=== PATIENT | male | born 1965 | race Caucasian/White ===

== ENCOUNTER 2023-08-14 14:36 | Outpatient (OUT) | payer OTHER, SELFPAY ==
[2023-08-14 15:40] LABS: Estimated Average Glucose 114 mg/dL; Glycohemoglobin A1C 5.6 % (4.5-6.2)
[2023-08-14 15:44] LABS: Basophils Percent Auto 0.4 % (0.2-2.0); Eosinophils Absolute Auto 0.1 10^3/uL (0.0-0.7); Eosinophils Percent Auto 1.9 % (0.9-7.0); Hematocrit 45.4 % (42.0-54.0); Hemoglobin 15.3 g/dL (14.0-18.0); Immature Granulocytes Abs Auto 0.01 10^3/uL (0.00-0.03); Immature Granulocytes Pct Auto 0.2 % (0.0-0.5); Lymphocytes Absolute Auto 2.6 10^3/uL (1.2-3.8); Lymphocytes Percent Auto 49.5 % (20.5-60.0); Mean Corpuscular HGB Conc 33.7 g/dL (29.9-35.2); Mean Corpuscular Hemoglobin 32.3 pg (25.9-34.0); Mean Corpuscular Volume 95.8 fL (80.0-94.0); Mean Platelet Volume 10.2 fL (9.5-13.5); Monocytes Absolute Auto 0.6 10^3/uL (0.3-0.8); Monocytes Percent Auto 11.8 % (1.7-12.0); Neutrophils Absolute Auto 1.9 10^3/uL (1.4-6.5); Neutrophils Percent Auto 36.2 % (43.0-75.0); Platelet Count 197 10^3/uL (150-450); Red Blood Count 4.74 10^6/uL (4.70-6.10); Red Cell Distribution Width 12.1 % (11.0-15.0); White Blood Count 5.3 10^3/uL (4.0-11.0)
[2023-08-14 16:03] LABS: Alanine Aminotransferase 58 U/L (16-63); Albumin Globulin Ratio 1.1; Albumin Level 3.6 g/dL (3.4-5.0); Alkaline Phosphatase 97 U/L (46-116); Anion Gap 11.3; Aspartate Amino Transferase 44 U/L (15-37); BUN Creatinine Ratio 14.9; Bilirubin Total 0.6 mg/dL (0.2-1.0); Calcium 8.3 mg/dL (8.5-10.1); Carbon Dioxide 29.7 mmol/L (21.0-32.0); Chloride 104 mmol/L (98-107); Chol HDL Ratio 4.3; Cholesterol 175 mg/dL (<=200); Estimated GFR (African America >60 (>=60); Estimated GFR (Non-African Ame >60 (>=60); Free T3 3.15 pg/mL (2.18-3.98); Globulin 3.3 g/dL; Glucose 86 mg/dL (74-106); HDL Cholesterol 41 mg/dL (40-60); LDL Cholesterol Calculated 120.4 mg/dL; Sodium 141 mmol/L (136-145); Thyroid Stimulating Hormone 1.166 uIU/mL (0.358-3.740); Total Protein 6.9 g/dL (6.4-8.2); Triglycerides 68 mg/dL (<=150); Uric Acid 5.4 mg/dL (3.5-7.2); VLDL CHOLESTEROL 13.6 mg/dL
[2023-08-14 16:11] LABS: Prostate Specific Antigen Scrn 4.96 ng/mL (<=4.00)
[2023-08-15 12:08] LABS: Insulin 6.2 uIU/mL (2.6-24.9)
== END 2023-08-14 14:37 | disposition home or self-care (01) ==
PROVIDERS: PCP Family Medicine; Visit Provider Nurse Practitioner Family
DX: Z00.00 Encounter for general adult medical examination without abnormal findings (principal); Z12.5 Encounter for screening for malignant neoplasm of prostate
CPT/HCPCS: 36415; 80053; 80061; 83036; 83525; 84436; 84443; 84481; 84550; 85025; G0103

== ENCOUNTER 2023-08-21 06:53 | Outpatient (OUT) | payer OTHER, SELFPAY ==
[2023-08-21 07:48] LABS: Alanine Aminotransferase 52 U/L (16-63); Albumin Globulin Ratio 1.2; Albumin Level 3.7 g/dL (3.4-5.0); Alkaline Phosphatase 96 U/L (46-116); Aspartate Amino Transferase 49 U/L (15-37); Bilirubin Direct 0.1 mg/dL (0.0-0.2); Bilirubin Total 0.4 mg/dL (0.2-1.0); Total Protein 6.7 g/dL (6.4-8.2)
[2023-08-22 04:07] LABS: PSA, Free 0.88 ng/mL; Prostate Specific Ag 4.9 ng/mL (0.0-4.0)
== END 2023-08-21 06:54 | disposition home or self-care (01) ==
LOC: LAB 06:53
PROVIDERS: PCP Family Medicine; Visit Provider Nurse Practitioner Family
DX: R74.8 Abnormal levels of other serum enzymes (principal); R97.20 Elevated prostate specific antigen [PSA]
CPT/HCPCS: 36415; 80076; 84153; 84154

== ENCOUNTER 2023-08-24 20:02 | Outpatient (REF) | payer OTHER, SELFPAY ==
[2023-08-24 20:43] LABS: Occult Blood Positive
== END 2023-08-24 20:03 | disposition home or self-care (01) ==
LOC: LAB 20:02
PROVIDERS: PCP Family Medicine; Visit Provider Nurse Practitioner Family
DX: Z00.00 Encounter for general adult medical examination without abnormal findings (principal)
CPT/HCPCS: G0328

== ENCOUNTER 2024-05-13 13:37 | Outpatient (OUT) | payer BC, SELFPAY | END 2024-05-13 13:38 | disposition home or self-care (01) | LOC: PST 13:37 | PROVIDERS: PCP Family Medicine; Visit Provider Surgery | DX: Z01.818 Encounter for other preprocedural examination (principal); R19.5 Other fecal abnormalities ==

== ENCOUNTER 2024-05-21 08:04 | Day surgery (SDC) | payer BC, SELFPAY ==
--- NOTE | 2024-05-21 | OP_ITS ---
OPERATION DATE: 05/21/2024 PREOPERATIVE DIAGNOSIS: Positive fecal occult blood test. POSTOPERATIVE DIAGNOSIS: Severe sigmoid diverticulosis. PROCEDURE: Colonoscopy to cecum. SURGEON: He Villela M.D. ANESTHESIA: Monitored anesthesia care. ESTIMATED BLOOD LOSS: Zero. INDICATIONS AND CONSENT: Patient is a 58-year-old male presents for positive fecal occult blood test. Indications, risks, benefits, alternatives of proceeding with colonoscopy were explained extensively to the patient, including the risks of bleeding, colon perforation or anesthetic complications. All of his questions were answered. Informed consent was obtained. PROCEDURE: Patient was brought to the operating room, placed in the left lateral decubitus position. Monitored anesthesia care was provided. Rectal exam was performed which revealed no masses or blood. The scope was inserted into the anal canal, under direct visualization was advanced. It was advanced to the cecum where cecal markings were clearly identified. There was noted to be a good prep. Upon withdrawal of the scope, mucosal surfaces were carefully examined. There were no mass lesions or polyps. No inflammatory changes or ulcerations. There was severe sigmoid diverticulosis without inflammatory changes or scarring. The scope was retroflexed in the anal canal. There was no significant hemorrhoidal disease. There were some prominent rectal veins. No evidence of old or new blood. Scope was then withdrawn. Patient tolerated procedure well, was sent to recovery room in good condition. f/u screening colonoscopy should be in 10 years. CC: Alexander Maki M.D. MTDD
[2024-05-21 08:09] VITALS: BP 132/82; PULSE 59; TEMP 36.1; O2SAT 100; BMI 27.3
--- OUTSIDE RECORDS SUMMARY | 2024-05-21 08:12 | XMS_ITS | CCD ---
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 Name Role Phone DR MARY MAKI Attending Unavailable HAI, DR HERNANDEZ Admitting Unavailable DR MARY MAKI Primary Care Unavailable DR MARY MAKI Consulting Unavailable DR MARY MAKI Admitting Unavailable HAI, DR HERNANDEZ Primary Care Unavailable HAI, DR HERNANDEZ Consulting Unavailable DR MARY MAKI Attending Unavailable Mary Maki MD Primary Care Provider [phone] Unavailable Primary Care Provider Unavailabl e No Family, Physician Primary Care Unavailable Mary Maki MD Primary Care Provider [phone] Mary Maki MD Primary Care Provider [phone] ANDRE KRAMER Referring Unavailable MARY MAKI Primary Care Unavailable ANDRE KRAMER Attending Unavailable MARY MAKI Primary Care Unavailable MARY MAKI Primary Care Unavailable HAI MARY Giorgio Primary Care Unavailable PEDRO YAÑEZ Referring Unavailable PEDRO YAÑEZ Attending Unavailable MARY MAKI Primary Care Unavailable ANDRE KRAMER Referring Unavailable DAVID MAKILAS M Primary Care Unavailable ANDRE KRAMER Referring Unavailable MARY MAKI Primary Care Unavailable Mary Maki Primary Care Physician [phone] He MOY Attending Unavailable Mary Maki Referring Unavailable Allergies Allergy Classification Reported Allergen(s) Allergy Type Date of Onset Reaction(s) Facility (1 source) No Known Medication Allergies; Translations: [No Known Medication Allergies] Propensity to adverse reactions (disorder) [facility] Repository Medications Current Medications Medication Drug Class(es) Dates Sig (Normalized) Sig (Original) 60 actuat budesonide 0.08 mg/actuat / formoterol fumarate 0.0045 mg/actuat metered dose inhaler (4 sources) Corticosteroid, beta2-Adrenergic Agonist Start: 09-24-2023 take 2 puff(s) by inhalation twice daily SYMBICORT 80-4.5 mcg/actuation inhaler INHALE 2 PUFFS INSTRUCTED TWICE DAILY. 30.6 Each 1 09/24/2023 Active Start: 2023 take 2 puff(s) by in halation twice daily budesonide-formoterol (SYMBICORT) 80-4.5 mcg/actuation inhaler Inhale 2 Puffs as instructed twice daily. 1 Each 2 2023 Active Comment on above: Inhale 2 Puffs as in structed twice daily. iv contrast (will be provided with radiology test) (1 source) Start: End: iv contrast (will be provided with radiology test) Indications: Elevated PSA , Encounter for observation for other suspected diseases and conditions ruled out MRI Prostate Inject, intravenously, once for 1 dose. No IV access, insert saline lock prior to the beginning of sedation, infusion, injection of imaging exam. Discontinue saline lock post exam. If Pt. has a central line or IVAD, may access for administration according to line specific nursing protocol. Once exam is complete flush line and de-access according to line specific nursing protocol in the MR contrast administration guidelines link. 1 Each 0 03/17/2024 03/18/2024 Active omeprazole 40 mg delayed release oral capsule (8 sources) Proton Pump Inhibitor Start: take 1 capsule by mouth once daily omeprazole (PRILOSEC) 40 mg capsule Indications: Chronic cough , Wheezing Take 1 capsule by mouth once daily. 30 capsule 2 09/14/2023 Active Start: 05-11-2023 take 1 capsule by mo [facility] once daily omeprazole (PRILOSEC) 40 mg capsule Indications: Chronic cough , Wheezing Take 1 capsule by mouth once daily. 30 capsule 2 05/11/2023 Active Comment on above: Take 1 capsule by mo [facility] once daily. ondansetron 4 mg disintegrating oral tablet (2 sources) Serotonin-3 Receptor Antagonist Start: 12-13-19 take 1 tablet by mouth three times daily as needed for nausea ondansetron (ZOFRAN-ODT) 4 MG disintegrating tablet Take 1 tablet by mouth 3 times daily as needed for Nausea or Vomiting 20 tablet 0 12/12/2022 Active Start: 12-12-2022 End: 12-12-2022 take 1 dose by mouth once 4 mg, Oral, ONCE, 1 dose, On Sun12/12/22 at 0845 tadalafil 5 mg oral tablet (3 sources) Phosphodiesterase 5 Inhibitor Start: 04-03-2024 take 1 tablet by mouth once daily as needed Cialis 5 mg oral tablet 5 mg = 1 tab(s), Oral, Daily, PRN erectile dysfunction, Refills(s) 0 Start Date: 04/03/24 Status: Ordered Start: 03-14-2024 take 1 tablet by silva th once daily as needed Tadalafil (CIALIS) 10 mg tablet Indications: Screening for genitourinary condition , Erectile dysfunction due to arterial insufficiency Take 1 tablet by mouth once daily as needed for up to 20 doses. Take 1-2 hours before sexual activity. 20 tablet 0 03/14/2024 Active Completed/Discontinued Medications Medication Drug Class(es) Dates Sig (Normalized) Sig (Original) amoxicillin 500 mg oral tablet (6 sources) Penicillin-class Antibacterial Start: 05-01-2019 End: 05-11-2023 Amoxicillin 500 mg tablet Take four capsules 1 hour prior to dental procedure and two capsule 6 hours later 12 tablet 0 05/01/2019 05/11/2023 Discontinued (Course of therapy completed) Comment on above: Take four capsules 1 hour prior to dental procedure and two capsule 6 hours later aspirin 81 mg delayed release oral tablet (5 sources) Platelet Aggregation Inhibitor, Nonsteroidal Anti-inflammatory Drug Start: 03-10-2019 End: 05-11-2023 take 1 tablet by mouth twice daily aspirin, enteric coated (ECOTRIN LOW STRENGTH) 81 mg EC tablet Take 1 tablet by mouth twice daily for 28 days. 56 tablet 0 03/10/2019 05/11/2023 Discontinued (Discontinued by Patient) Comment on above: Take 1 tablet by silva th twice daily for 28 days. cyclobenzaprine hydrochloride 10 mg oral tablet (6 sources) Muscle Relaxant Start: 05-27-2019 End: 05-11-2023 take 1 tablet by mouth twice daily as needed cyclobenzaprine (FLEXERIL) 10 mg tablet TAKE 1 TABLET BY MOUTH TWICE A DAY NEEDED *DO NOT OPERATE A VEHICLE WHILE TAKING THIS [id number]* 30 tablet 0 05/27/2019 05/11/2023 Discontinued (Discontinued by Patient) Comment on above: TAKE 1 TABLET BY SILVA TH TWICE A DAY NEEDED *DO NOT OPERATE A VEHICLE WHILE TAKING THIS [id number]* diclofenac sodium 75 mg delayed release oral tablet (12 sources) Nonsteroidal Anti-inflammatory Drug Start: 04-28-2019 End: 05-11-2023 take 1 tablet by mouth twice daily diclofenac, EC, (VOLTAREN) 75 mg EC tablet Take 1 tablet by mouth twice daily. 60 tablet 0 06/27/2019 05/11/2023 Discontinued (Discontinued by Patient) Comment on above: Take 1 tablet by silva th twice daily. pantoprazole 20 mg delayed release oral tablet (5 sources) Proton Pump Inhibitor Start: 03-10-2019 End: 05-11-2023 take 1 tablet by mouth once daily pantoprazole DR (PROTONIX) 20 mg tablet Take 1 tablet by mouth once daily for 14 days. 14 tablet 0 03/10/2019 05/11/2023 Discontinued (Discontinued by Patient) Comment on above: Take 1 tablet by silva once daily for 14 days. Problems Active Problems Problem Classification Problem Date Documented Da te Episodic/Chronic Anxiety disorders (1 source) Anxiety 04-03-2024 Chronic Asthma (1 source) Asthma 04-03-2024 Chronic Diverticulosis and diverticulitis (14 sources) Diverticulosis of large intestine; Translations: [Diverticulosis of large intestine without perforation or abscess without bleeding] Onset: 7 09-04-2017 Chronic Esophageal disorders (14 sources) Gastroesophageal reflux disease without esophagitis; Translations: [Gastro-esophageal reflux disease without esophagitis] Onset: 7 09-04-2017 Chronic Noninfectious gastroenteritis (2 sources) Gastroenteritis; Translations: [Noninfective gastroenteritis and colitis, unspecified] Onset: 3 Episodic Osteoarthritis (20 sources) Osteoarthritis of left knee joint; Translations: [Unilateral primary osteoarthritis, left knee] Onset: 7 06-25-2018 Chronic Other connective tissue disease (13 sources) History of total knee arthroplasty; Translations: [Presence of left artificial knee joint] Onset: 9 03-31-2019 Chronic Other gastrointestinal disorders (1 source) Abnormal feces; Translations: [Other fecal abnormalities] Onset: 4 Episodic Other gastrointestinal disorders (1 source) Occult blood in stools 04-03-2024 Episodic Other lower respiratory disease (4 sources) Wheezing; Translations: [Wheezing] 05-11-2023 Episodic Other male genital disorders (1 source) Male erectile dysfunction, unspecified; Translations: [MALE ERECTILE DYSFUNCTION UNS] Onset: 2 Chronic Other male genital disorders (1 source) Erectile dysfunction co-occurrent and due to arterial insufficiency; Translations: [Erectile dysfunction due to arterial insufficiency] 03-14-2024 Chronic Other male genital disorders (1 source) Erectile dysfunction due to arterial insufficiency; Translations: [Erectile dysfunction due to arterial insufficiency] Onset: 4 Chronic Other male genital disorders (1 source) Impotence 04-03-2024 Chronic Other nervous system disorders (1 source) Disturbance of attention 04-03-2024 Chronic Other nutritional; endocrine; and metabolic disorders (1 source) Overweight 04-03-2024 Episodic Other nutritional; endocrine; and metabolic disorders (1 source) Overweight in adulthood with body mass index of 25 or more but less than 30 05-07-2024 Episodic Other screening for suspected conditions (not mental disorders or infectious disease) (15 sources) Elevated prostate specific antigen [PSA]; Translations: [Encounter for screening for malignant neoplasm of prostate] Onset: 2 Episodic Spondylosis; intervertebral disc disorders; other back problems (1 source) Degeneration of cervical intervertebral disc 04-03-2024 Chronic Spondylosis; intervertebral disc disorders; other back problems (1 source) Sciatica 04-03-2024 Episodic Past or Other Problems Problem Classification Problem Date Documented Da te Episodic/Chronic Abdominal hernia (13 sources) Bilateral inguinal hernia; Translations: [Bilateral inguinal hernia, without obstruction or gangrene, not specified as recurrent] Onset: 08-17-2017 08-17-2017 Episodic Other lower respiratory disease (5 sources) Chronic cough; Translations: [Chronic cough] Onset: 05-11-2023 05-11-2023 Episodic Other lower respiratory disease (1 source) Wheezing; Translations: [Wheezing] Onset: 05-11-2023 Episodic Results Test Name Value Interpretation Reference Range Facility Ambulatory Visit Summaryon 0 05-07-2024 Ambulatory Visit Summary Ambulatory Visit Summary NOEMI GARCIA :1965 Visit Date:05/07/2024 Ambulatory Visit Instructions Your Diagnosis Positive occult stool blood test Your Care Team Attending Physician - CHINMAY GOMES, He Valenzuela Primary Care Physician - Mary Maki MD Referring Physician - Mary Maki MD This Is Your Medications List Contact prescribing physician if questions or concerns tadalafil (Cialis 5 mg oral tablet) Procedures Performed Colonoscopy (09/13/2016), Arthroplasty of left knee, History of lumbar spine surgery, Repair of left inguinal hernia, Repair of right inguinal hernia. Discharge Vitals Heart Rate (Peripheral) 70 Respiratory Rate 16 Blood Pressure 120/82 Height 180.34 cm Height 71 in Weight 89 kg Weight 195.8 lb BMI 27.37 Medications What How Much When Instructions Unchanged tadalafil (Cialis 5 mg oral tablet) 1 Tablets By Mouth Every day as needed for erectile dysfunction Contact prescribing physician if questions or concerns Allergies No Known Allergies No Known Medication Allergies Problems Ongoing - Any problem that you are currently receiving treatment for. Anxiety Asthma Attention and concentration deficit BMI 27.0-27.9,adult DDD (degenerative disc disease), cervical Erectile dysfunction GERD (gastroesophageal reflux disease) Overweight Positive occult stool blood test Sciatica Sigmoid diverticulosis Patient Survey You may receive a survey via text or e-mail asking about your office visit. Please share your experience with us by completing your survey. We appreciate your feedback and thank you for choosing us for your care. [facility] Office Visit (UROLMN ) NOEMI GARCIA ([id number]) 1965 M Date Time Provider Department 03/14/24 3:45 PM PEDRO YAÑEZ During your visit today, we recorded the following information about you: Pulse Blood pressure 69/minute 125/79 Pedro Yañez MD 03/17/2024 9:19 AM Signed PATIENT: Noemi Garcia [id number] 03/14/2024 Chief Complaint: Follow up elevated PSA History of Present Illness: This clinic note was copied and updated from previous note from 01/08/2023 Noemi Garcia is a very pleasant 58 year old male who presents with a history of OA, knee replacement, diverticulosis, GERD, elevated PSA . Follow up today with PSA free and total Patient is presenting for follow up PSA pending as of today Occasional hesitancy Occasional nocturia AUA score: 5 (mild), Qol0 JOSEFINA score: 22, no ED No family hx of prostate cancer., No hematuria, No dysuria, No kidney stones. Past Histories PAST MEDICAL HISTORY PAST MEDICAL HISTORY Diagnosis Date NONE PAST SURGICAL HISTORY PAST SURGICAL HISTORY Procedure Laterality Date COLONOSCOPY HERNIA REPAIR HX Bilateral PAST SURGICAL HISTORY OF lumbar disc surgery Medications Current Outpatient Medications Medication Instructions Amoxicillin 500 mg tablet Take four capsules 1 hour prior to dental procedure and two capsule 6 hours later aspirin, enteric coated (ECOTRIN LOW STRENGTH) 81 mg, ORAL, 2 TIMES DAILY cyclobenzaprine (FLEXERIL) 10 mg tablet TAKE 1 TABLET BY MOUTH TWICE A DAY NEEDED *DO NOT OPERATE A VEHICLE WHILE TAKING THIS [id number]* diclofenac (EC) (VOLTAREN) 75 mg, ORAL, 2 TIMES DAILY diclofenac (EC) (VOLTAREN) 75 mg, ORAL, [address] (PROTONIX) 20 mg, ORAL, DAILY Family History FAMILY HISTORY FAMILY HISTORY Problem Relation Age of Onset Coronary Artery Disease Paternal Grandfather Social History SOCIAL HISTORY Social History Tobacco Use Smoking status: Never Smokeless tobacco: Never Substance Use Topics Alcohol use: Yes Comment: Social Drug use: No Allergies Allergies: No Known Allergies Physical Exam: There were no vitals taken for this visit. General: Alert, no acute distress, oriented Lungs: No respiratory distress or pursed lip breathing Psych: Affect and mood normal Abdomen: Estimated body mass index is 26.64 kg/m? as calculated from the following: Height as of 01/08/23: 180.3 cm (5' 11 ). Weight as of 05/11/23: 86.6 kg (191 lb). Labs and Pathology: PSA (ng/mL) Date Value 05/02/2023 3.22 Creatinine (mg/dL) Date Value 03/11/2019 0.80 02/27/2019 0.95 08/31/2017 0.91 Diagnosis: (Z13.89) Screening for genitourinary condition (primary encounter diagnosis) (N52.01) Erectile dysfunction due to arterial insufficiency Assessment: Noemi Garcia is a very pleasant 58 year old male who presents with a history of OA, knee replacement, diverticulosis, GERD, elevated PSA . Follow up today with PSA free and total Patient sent by family doctor for elevated PSA. I don't have his recent PSA results at this time. He took the PSA test today results are currently in process. TREY today demonstrated prostate 1+, non tender and no suspicion of prostate cancer. We both agree to wait and review the test results. If results are high, I will request a MRI. If the results come back normal, we will continue with periodical assessment. I will call the patient with the PSA result. There is evidence that an MRI prior to initial biopsy increases the diagnostic yield of a standard TRUS guided biopsy, specifically for clinically significant prostate cancer (Ade > 7 or more). Also it does not detect low volume Ade 6 prostate cancer which often don't need to be diagnosed or treated. That strategy has been shown to reduce unnecessary biopsy by up to 25%. The MRI would also provide staging and surgical planning information should treatment be required. References: Pedro Luis et al., Diagnostic accuracy of MRI and TRUS biopsy in prostate cancer (PROMIS): a paired valiating confirmatory study. Lancet 25;389:069-350.3765. Linda et al. MRI-targeted or standard biopsy for prostate-cancer diagnosis. [facility] 378;19:[id number]. Plan: Will call with PSA result Scribe Attestation: By signing my name below, I,Altagracia Alvarez, attest that this documentation has been prepared under the direction and in the presence of Pedro Lloyd MD. Electronically Signed: Joanne Mccoy. March 14, 2024 4:24 PM. Provider Attestation: I, personally performed the services described in this documentation. All medical record entries made by the scribe were at my direction and in my presence. I have reviewed the chart and discharge instructions (if applicable) and agree that the record reflects my personal performance and is accurate and complete. Electronically Signed (more content not included)... Normal [facility] Free PSA [Mass/Vol]on 2023 Free PSA/Total PSA [Mass fraction] 19 % Normal [facility] Comment on above: Order Comment: Speci men Type: BLOOD SPECIMEN Ordering Facility: [facility] Address: [address] [place] [address] Result Comment: Tota l and free PSA test methodology used is the Electrochemiluminescence Immunoassay by [employer]. Total or free PSA values by differing methodologies cannot be interchanged. The below table lists the probability of finding prostate cancer upon needle biopsy, for men 50 years or older and total PSA concentrations from 4.0-10.0 ng/mL. Results should be interpreted within the broader clinical context. Free PSA(%) 50-59 years 60-69 years >69 years <11 49.2% 57.5% 64.5% 11-18 26.9% 33.9% 40.8% 19-25 18.3% 23.9% 29.7% >25 9.1% 12.2% 15.8% Performed By: #### 1 0886-0 #### [facility] CLIA [id number] [address] [place], [place] [address] [place] [address] [place] Prostate specific Ag [Mass/Vol] 5.41 ng/mL High <2.60 [facility] Comment on above: Order Comment: Speci men Type: BLOOD SPECIMEN Ordering Facility: [facility] Address: [address] [place] [address] Result Comment: Tota l PSA test methodology used is the Electrochemiluminescence Immunoassay by [employer]. Total PSA values by differing methodologies cannot be interchanged. For an individual patient, the significance of a PSA level should be interpreted in a broad clinical context, including age, race, family history, digital rectal exam, prostate size, results of prior testing (prostate biopsy, free PSA, PCA3), and use of 5-alpha reductase inhibitors. Considering the high incidence of asymptomatic cancer in the general population that may not pose an ultimate risk to a patient, the decision to recommend urological evaluation or prostate biopsy should be individualized after consideration of all these factors. REFERENCE: Eliu Matamoros M.D., M.P.H., Jason Wade M.D., Ph.D., Donn Pizarro M.D., Lesa Osullivan, M.P.H., Davina Pantoja, ScAmparoD. Effect of Verification Bias on Screening for Prostate Cancer by Measurement of Prostatic Specific Antigen. N Engl J Med 2003,349:335-42. Performed By: #### 1 0886-0 #### [facility] CLIA [id number] [address] [place] [address] [place] URINALYSIS, REFLEX MICROSCOP ICon 03-14-2024 Bilirubin Ql (U) Negative Normal Negative [facility] Comment on above: Order Comment: Speci men Type: BLOOD SPECIMEN Ordering Facility: [facility] Address: [address] [address] Performed By: #### 1 0886-0 #### [facility] CLIA [id number] [address] [place] [address] [place] Clarity (Unsp spec) Clear Normal Clear [facility] Comment on above: Order Comment: Speci men Type: BLOOD SPECIMEN Ordering Facility: [facility] Address: [address] [address] Performed By: #### 1 0886-0 #### [facility] CLIA [id number] [address] [place] [address] OF [facility] Color (U) Yellow Normal Yellow [facility] Comment on above: Order Comment: Speci men Type: BLOOD SPECIMEN Ordering Facility: [facility] Address: [address] [address] Performed By: #### 1 0886-0 #### [facility] CLIA [id number] [facility] [place] [address] [place] Glucose Test strip (U) [Mass/Vol] Negative Normal Negative [facility] Comment on above: Order Comment: Speci men Type: BLOOD SPECIMEN Ordering Facility: [facility] Address: [address] [address] Performed By: #### 1 0886-0 #### [facility] CLIA [id number] [address] [place] [address] [place] Hemoglobin Ql (U) Negative Normal Negative [facility] Comment on above: Order Comment: Speci men Type: BLOOD SPECIMEN Ordering Facility: [facility] Address: [address] [address] Performed By: #### 1 0886-0 #### [facility] CLIA [id number] [address] [place] [address] [place] Ketones Ql (U) Negative Normal Negative [facility] Comment on above: Order Comment: Speci men Type: BLOOD SPECIMEN Ordering Facility: [facility] Address: [address] [address] Performed By: #### 1 0886-0 #### [facility] CLIA [id number] [address] [place] [address] [place] Leukocyte esterase Test strip Ql (U) Negative Normal Negative [facility] Comment on above: Order Comment: Speci men Type: BLOOD SPECIMEN Ordering Facility: [facility] Address: [address] Performed By: #### 1 0886-0 #### [facility] CLIA [id number] [address] [place] [address] [place] Nitrite Ql (U) Negative Normal Negative [facility] Comment on above: Order Comment: Speci men Type: BLOOD SPECIMEN Ordering Facility: [facility] Address: [address] Performed By: #### 1 0886-0 #### [facility] CLIA [id number] [address] [place] [address] [place] pH (U) 5.5 [pH] Normal <8.5 [facility] Comment on above: Order Comment: Speci men Type: BLOOD SPECIMEN Ordering Facility: [facility] Address: [address] Performed By: #### 1 0886-0 #### [facility] CLIA [id number] [address] [place] [address] [place] Protein (U) [Mass/Vol] Negative Normal Negative [facility] Comment on above: Order Comment: Speci men Type: BLOOD SPECIMEN Ordering Facility: [facility] Address: [address] [place] [address] Performed By: #### 1 0886-0 #### [facility] CLIA [id number] [address] [place] [address] Specific gravity (U) [Rel density] 1.024 Normal 1.005-1.030 [facility] Comment on above: Order Comment: Speci men Type: BLOOD SPECIMEN Ordering Facility: [facility] Address: [address] [place] [address] Performed By: #### 1 0886-0 #### [facility] [place] [id number] [address] [place] [address] OF [place] Urobilinogen Ql (U) 0.2 EU/dL Normal 0.2-1.0 EU/dL [facility] Comment on above: Order Comment: Speci men Type: BLOOD SPECIMEN Ordering Facility: [facility] Address: [address] [place] [address] Performed By: #### 1 0886-0 #### [facility] [place] [id number] [address] [place] [address] [place] Physician Referralon 024 Physician Referral [phone] [id number] Normal [facility] CNCOon 05-15-2023 CNCO Letter (Out) (LADAN ) RADHA,NOEMI D ([id number]) 1965 M Date Time Provider Department 05/15/23 ANDRE KRAMER During your visit today, we recorded the following information about you: Allergies As of Date: 05/15/2023 (No Known Allergies) Date Reviewed: 05/11/2023 Reviewed by: Andre Kraemr MD - Fully Assessed Prescriptions as of 05/15/2023 - omeprazole (PRILOSEC) 40 mg capsule Take 1 capsule by mouth once daily. Problem List As Of Date 05/15/2023 Noted Resolved Primary osteoarthritis of left knee [M17.12] 09/28/2016 Non-recurrent bilateral inguinal hernia without*08/17/2017 Diverticulosis of large intestine without perfo*09/04/2017 GERD without esophagitis [K21.9] 09/04/2017 Arthritis of knee, left [M17.12] 06/25/2018 OA (osteoarthritis) of knee [M17.9] 03/10/2019 Status post total knee replacement, left [Z96.6*03/31/2019 Letter Text Encounter Status:Closed by RITA OLIVER on 05/15/23 [facility] CNOVon 05-11-2023 CNOV Office Visit (PMNA11 ) NOEMI GARCIA ([id number]) 1965 M Date Time Provider Department 05/11/23 1:00 PM ANDRE KRAMER PMNA11 During your visit today, we recorded the following information about you: Temperature Pulse Respiration Blood pressure 97 degrees 94/minute 16/minute 122/75 Weight 86.6 kg Andre Kramer MD 05/11/2023 1:56 PM Count Includes [facility] [place] New Pulmonary Consultation CC: wheezing, cough Noemi Gavlan Radha is a 57 year old male self-referred for evaluation of cough. Assessment and Plan (R05.3) Chronic cough (primary encounter diagnosis) (R06.2) Wheezing Comment: I am suspicious that his cough may be from underlying asthma given prior spirometry showing mild obstruction and prior clinical response to Advair and/or related to GERD leading to laryngeal pharyngeal reflux given that his cough is worse in the morning and his sleep partner reports nocturnal wheezing. He currently has no GERD alarm symptoms such as dysphagia or weight loss. Plan: Obtain NITRIC OXIDE, EXHALED, SPIROMETRY - BASELINE AND POST DILATOR To evaluate for underlying asthma XR CHEST 2V FRONTAL/LAT CONSULT TO ENT for evaluation of vocal cord function (?ILO related to LPR) Start omeprazole (PRILOSEC) 40 mg capsule daily Start to sleep with the head of bed elevated 30 degrees Return to clinic in 3 months This note was partially created using voice recognition software and is inherently subject to errors including those of syntax and sound-alike substitutions which may escape proofreading. In such instances, original meaning may be extrapolated by contextual derivation. Please contact my office with questions or concerns. I spent a total of 54 minutes on the date of the service which included preparing to see the patient, [id number] patient care, completing clinical documentation, obtaining and/or reviewing separately obtained history, performing a medically appropriate examination, counseling and educating the patient/family/caregiver, ordering medications, tests, or procedures, independently interpreting results (not separately reported), and communicating results to the patient/family/caregiver Andre Kramer MD Staff, Pulmonary AND Critical Care Medicine Staff, [facility] [place] [facility] HPI: Mr Garcia is a 57 year-old never smoker who presented today for evaluation of wheezing and the sensation of something in his lungs associated with a cough. He was previously seen by pulmonary medicine in with Dr. Del Toro and underwent bronchoscopy for evaluation of cough. Per Dr. Del Toro's notes he was having a hacking spasmodic cough. some black particles in the phlegm. 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 Bronchoscopy was done and reported as normal and he was started on Advair, which he used for a few years. This did help his cough. 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 He states that he is exposed to some fumes at times. His currently cough came about the past 3-4 years. His cough is day and night. Cough is mostly dry, but he has recent worsening of his cough after URI and coughed up some phlegm. He feels like there is an occasional tickle in his throat. Cough is not related to position or food, but he does note that his cough is worse in the morning. He cough isn't necessarily related to work. He also has voice hoarseness. His girlfriend states she hears him wheezing at night. He denies PND. He has no dysphagia or traditional GERD symptoms. No aspiration event outside of shredded pork/beef when he eats it too fast. He recently renovated a home with girlfriends brother. There was concern for mold exposure that made his cough worse for awhile. He has no dyspnea, but has not been routinely exercising in the past 6 months. He had gained 10 lbs in the past 6 months. No LE edema, orthopnea. No Chest pain. No new rashes. PAST MEDICAL HISTORY Diagnosis Date NONE PAST SURGICAL HISTORY Procedure Laterality Date COLONOSCOPY HERNIA REPAIR HX Bilateral PAST SURGICAL HISTORY OF lumbar disc surgery FAMILY HISTORY Problem Relation Age of Onset Coronary Artery Disease Paternal Grandfather Social History Tobacco Use Smoking status: Never Smokeless tobacco: Never Substance Use Topics Alcohol use: Yes Comment: Social Drug use: No Current Outpatient Medications Medication Sig Dispense Refill diclofenac, EC, (VOLTAREN) 75 mg EC tablet Take 1 tablet by mouth twice daily. (Patient not taking: Reported on 05/11/2023) 60 tablet 0 cyclobenzaprine (FLEXERIL) 10 mg tablet TAKE 1 TABLET BY MOUTH TWICE A DAY NEEDED *DO NOT OPERATE A VEHICLE WHILE TAKING THIS [id number]* (Patient n (more content not included)... Normal [facility] No Panel Informationon 05-11 [facility] XR CHEST 2V FRONTAL/LATon XR CHEST 2V FRONTAL/LAT * * *Final Report* * * DATE OF EXAM: May 11 2023 2:24PM AOX [id number] - XR CHEST 2V FRONTAL/LAT / PROCEDURE REASON: multiple diagnoses * * * * Physician Interpretation * * * * EXAMINATION: CHEST RADIOGRAPH (2 VIEW FRONTAL and LATERAL) CLINICAL HISTORY: Chronic cough Wheezing MQ: [id number] EXAM DATE/TIME: 05/11/2023 2:24 PM COMPARISON: No relevant prior studies available. RESULT: Lines, tubes, and devices: None. Lungs and pleura: Mild inflammatory airway thickening in the perihilar regions is suspected. No consolidation or mass lesion. No pleural effusion or pneumothorax. Cardiomediastinal silhouette: Normal sized heart. Thoracic aorta is mildly tortuous. Bones and soft tissues: The visualized bones are osteopenic. IMPRESSION: See result Orthotist: YESSENIA Transcribe Date/Time: May 11 2023 3:09P Dictated by : LEXIE SCHOFIELD MD This examination was interpreted and the report reviewed and electronically signed by: LEXIE SCHOFIELD MD on May 11 2023 3:10PM EST [id number] Normal [facility] Free PSA [Mass/Vol]on 2022 Free PSA/Total PSA [Mass fraction] 16 % Normal [facility] Comment on above: Order Comment: Speci men Type: BLOOD SPECIMEN Ordering Facility: [facility] Address: [address] [place], [place] [id number] Result Comment: Tota l and free PSA test methodology used is the Electrochemiluminescence Immunoassay by [employer]. Total or free PSA values by differing methodologies cannot be interchanged. The below table lists the probability of finding prostate cancer upon needle biopsy, for men 50 years or older and total PSA concentrations from 4.0-10.0 ng/mL. Results should be interpreted within the broader clinical context. Free PSA(%) 50-59 years 60-69 years >69 years <11 49.2% 57.5% 64.5% 11-18 26.9% 33.9% 40.8% 19-25 18.3% 23.9% 29.7% >25 9.1% 12.2% 15.8% Performed By: #### 1 0886-0 #### [facility] CLIA [id number] [facility] [id number] [place] [address] [place] Prostate specific Ag [Mass/Vol] 3.22 ng/mL High <2.60 [facility] Comment on above: Order Comment: Speci men Type: BLOOD SPECIMEN Ordering Facility: [facility] Address: [address] [place] [id number] Result Comment: Alesha villarreal PSA test methodology used is the Electrochemiluminescence Immunoassay by [employer]. Total PSA values by differing methodologies cannot be interchanged. For an individual patient, the significance of a PSA level should be interpreted in a broad clinical context, including age, race, family history, digital rectal exam, prostate size, results of prior testing (prostate biopsy, free PSA, PCA3), and use of 5-alpha reductase inhibitors. Considering the high incidence of asymptomatic cancer in the general population that may not pose an ultimate risk to a patient, the decision to recommend urological evaluation or prostate biopsy should be individualized after consideration of all these factors. REFERENCE: Eliu Matamoros M.D., M.P.H., Jason Wade M.D., Ph.D., Donn Pizarro M.D., Lesa Osullivan, M.P.H., Davina Pantoja, Sc.Mandy. Effect of Verification Bias on Screening for Prostate Cancer by Measurement of Prostatic Specific Antigen. N Engl J Med 2003,349:335-42. Performed By: #### 1 0886-0 #### [facility] CLIA [id number] [address] [place] [address] [place] URINALYSIS, REFLEX MICROSCOP ICon 01-08-2023 Bilirubin Ql (U) Negative Negative [facility] Clarity (Unsp spec) Clear Clear [facility] Color (U) Colorless Yellow [facility] Glucose Test strip (U) [Mass/Vol] Negative Trace, Negative [facility] Hemoglobin Ql (U) Negative Negative, Trace [facility] Ketones Ql (U) Negative Negative, Trace [facility] Leukocyte esterase Test strip Ql (U) Negative Negative, 25 Radhika/uL [facility] Nitrite Ql (U) Negative Negative [facility] pH (U) 6.5 [pH] 5.0 - 8.0 [facility] Protein (U) [Mass/Vol] Negative Trace, Negative [facility] Specific gravity (U) [Rel density] 1.005 1.005 - 1.030 [facility] Urobilinogen Ql (U) Negative Negative [facility] COVID-19 BY NAATon SARS-CoV-2 (COVID-19) RNA CHICA+probe Ql (Unsp spec) Not detected Normal NOT DETECTED [facility] Comment on above: Result Comment: Rapi d NAAT: Negative results should be treated as presumptive and, if inconsistent with clinical signs and symptoms or necessary for patient management, should be tested with an alternative molecular assay. Negative results do not preclude SARS-CoV-2 infection and should not be used as the sole basis for patient management decisions. This test has been authorized by the FDA under an Emergency Use Authorization (EUA) for use by authorized laboratories. Fact sheet for Healthcare Providers: https://www.fda.gov/media/548265/download Fact sheet for Patients: https://www.fda.gov/media/233362/download METHODOLOGY: Isothermal Nucleic Acid Amplification Performed By: #### W OFELIA #### [place] [address] COVID-19, Rapidon 12-12-2022 SARS-CoV-2 (COVID-19) RdRp gene CHICA+probe Ql (Resp) Not detected NOT DETECTED [facility] Comment on above: Rapid NAAT: Negative results should be treated as presumptive and, if inconsistent with clinical signs and symptoms or necessary for patient management, should be tested with an alternative molecular assay. Negative results do not preclude SARS-CoV-2 infection and should not be used as the sole basis for patient management decisions. This test has been authorized by the FDA under an Emergency Use Authorization (EUA) for use by authorized laboratories. Fact sheet for Healthcare Providers: https://www.fda.gov/media/557455/download Fact sheet for Patients: https://www.fda.gov/media/861278/download METHODOLOGY: Isothermal Nucleic Acid Amplification [place] [address] SARS-CoV-2 (COVID-19) RdRp g kj CHICA+probe Ql (Resp)on 12-12-2022 [facility] URINALYSIS, REFLEX MICROSCOP ICon 07-11-2022 Bilirubin Ql (U) Negative Negative [facility] Clarity (Unsp spec) Clear Clear [facility] Color (U) Light Yellow Yellow [facility] Glucose Test strip (U) [Mass/Vol] Negative Negative [facility] Hemoglobin Ql (U) Negative Negative [facility] Ketones Ql (U) Negative Negative [facility] Leukocyte esterase Test strip Ql (U) Negative Negative [facility] Nitrite Ql (U) Negative Negative [facility] pH (U) 6.0 [pH] 5.0 - 8.0 [facility] Protein (U) [Mass/Vol] Negative Negative [facility] Specific gravity (U) [Rel density] 1.021 1.005 - 1.030 [facility] Urobilinogen Ql (U) Negative Negative [facility] PSA, FREE AND TOTAL RATIOon 06-07-2022 % Free PSA 18.7 % Normal [facility] Comment on above: Result Comment: The table below lists the probability of prostate cancer for men with non-suspicious TREY results and total PSA between 4 and 10 ng/mL, by patient age (Vinay et al, CORDELL 1998, 279:1542). % Free PSA 50-64 yr 65-75 yr 0.00-10.00% 56% 55% 10.01-15.00% 24% 35% 15.01-20.00% 17% 23% 20.01-25.00% 10% 20% >25.00% 5% 9% Please note: Vinay et al did not make specific recommendations regarding the use of percent free PSA for any other population of men. Performed By: #### P SAFREE #### [facility] [address] [place] [address] Dr. King Cuellar Prostate specific Ag [Mass/Vol] 3.8 ng/mL Normal 0.0-4.0 [facility] Comment on above: Result Comment: Natanael THOMPSON methodology. . According to the [place] [employer], Serum PSA should decrease and remain at undetectable levels after radical prostatectomy. The AUA defines biochemical recurrence as an initial PSA value 0.2 ng/mL or greater followed by a subsequent confirmatory PSA value 0.2 ng/mL or greater. Values obtained with different assay methods or kits cannot be used interchangeably. Results cannot be interpreted as absolute evidence of the presence or absence of malignant disease. Performed By: #### P SAFREE #### [facility] [address] [address] [address] King Cuellar PSA, Free 0.71 ng/mL Normal N/A [facility] Comment on above: Result Comment: Natanael THOMPSON methodology. Performed By: #### P SAFREE #### [facility] [address] [place] [address] Dr. King Cuellar TESTOSTERONE, TOTALon 2021 Testosterone [Mass/Vol] 616 ng/dL Normal 264-916 [facility] Comment on above: Result Comment: Adul t male reference interval is based on a population of healthy nonobese males (BMI <30) between 19 and 39 years old. Theodore, et.al. JCEM 2017,102;2848-5914. PMID: [id number]. Performed By: #### T ESTTOT #### [facility] [address] [place] [address] Dr. King Cuellar INSULINon 11-08-2021 Insulin 6.6 uIU/mL Normal 2.6-24.9 [facility] Comment on above: Performed By: #### I NSULIN #### [facility] [address] [place] [address] Dr. King Cuellar PSA, FREE AND TOTAL RATIOon 11-08-2021 % Free PSA 18.5 % Normal [facility] Comment on above: Result Comment: The table below lists the probability of prostate cancer for men with non-suspicious TREY results and total PSA between 4 and 10 ng/mL, by patient age (Vinay et al, CORDELL 1998, 279:1542). % Free PSA 50-64 yr 65-75 yr 0.00-10.00% 56% 55% 10.01-15.00% 24% 35% 15.01-20.00% 17% 23% 20.01-25.00% 10% 20% >25.00% 5% 9% Please note: Vinay et al did not make specific recommendations regarding the use of percent free PSA for any other population of men. Performed By: #### P SAFREE #### [facility] [address] [place] [address] Dr. King Cuellar Prostate specific Ag [Mass/Vol] 3.9 ng/mL Normal 0.0-4.0 [facility] Comment on above: Result Comment: Natanael colón ECLIA methodology. . According to the [place] [employer], Serum PSA should decrease and remain at undetectable levels after radical prostatectomy. The AUA defines biochemical recurrence as an initial PSA value 0.2 ng/mL or greater followed by a subsequent confirmatory PSA value 0.2 ng/mL or greater. Values obtained with different assay methods or kits cannot be used interchangeably. Results cannot be interpreted as absolute evidence of the presence or absence of malignant disease. Performed By: #### P SAFREE #### [facility] [address] [place] [address] Dr. King Cuellar PSA, Free 0.72 ng/mL Normal N/A [facility] Comment on above: Result Comment: Natanael colón ECLIA methodology. Performed By: #### P SAFREE #### [facility] [address] [place] [address] Dr. King Cuellar CBC AUTO DIFFon 11-07-2021 BASO # 0.0 103/ul Normal 0.0-0.1 [facility] Comment on above: Performed By: #### C BC #### [facility] [address] [place] [address] Dr. King Cuellar Basophils/100 WBC (Bld) 0.4 % Normal 0.2-2.0 [facility] Comment on above: Performed By: #### C BC #### [facility] [address] [place] [address] Dr. King Cuellar EO # 0.2 103/ul Normal 0.0-0.7 [facility] Comment on above: Performed By: #### C BC #### [facility] [address] [place] [address] Dr. King Cuellar Eosinophils/100 WBC (Bld) 3.6 % Normal 0.9-7.0 [facility] Comment on above: Performed By: #### C BC #### [facility] [address] [place] [address] Dr. King Cuellar Erythrocyte distribution width (RBC) [Ratio] 12.1 % Normal 11.0-15.0 [facility] Comment on above: Performed By: #### C BC #### [facility] [address] [place] [address] Dr. King Cuellar Hematocrit (Bld) [Volume fraction] 50.9 % Normal 42.0-54.0 [facility] Comment on above: Performed By: #### C BC #### [facility] [address] [place] [address] Dr. King Cuellar Hemoglobin (Bld) [Mass/Vol] 16.6 g/dL Normal 14.0-18.0 [facility] Comment on above: Performed By: #### C BC #### [facility] [address] [place] [address] Dr. King Cuellar IG # 0.02 10e3/ul Normal 0.00-0.03 [facility] Comment on above: Performed By: #### C BC #### [facility] [address] [place] [address] Dr. King Cuellar IG % 0.4 % Normal 0.0-0.5 [facility] Comment on above: Performed By: #### C BC #### [facility] [address] [place] [address] Dr. King Cuellar LYMPH # 1.6 103/ul Normal 1.2-3.8 [facility] Comment on above: Performed By: #### C BC #### [facility] [address] [place] [address] Dr. King Cuellar Lymphocytes/100 WBC (Bld) 31.1 % Normal 20.5-60.0 [facility] Comment on above: Performed By: #### C BC #### [facility] [address] [place] [address] Dr. King Cuellar MANUAL DIFF REQ NO Normal [facility] Comment on above: Performed By: #### C BC #### [facility] [address] [place] [address] Dr. King Cuellar MCH (RBC) [Entitic mass] 32.2 pg Normal 25.9-34.0 [facility] Comment on above: Performed By: #### C BC #### [facility] [address] [place], [place] [id number] Dr. King Cuellar MCHC (RBC) [Mass/Vol] 32.6 g/dL Normal 29.9-35.2 [facility] Comment on above: Performed By: #### C BC #### [facility] [address] [place] [address] Dr. King Cuellar MCV (RBC) [Entitic vol] 98.6 fL Critically high 80.0-94.0 [facility] Comment on above: Performed By: #### C BC #### [facility] [address] [place] [address] Dr. King Cuellar MONO # 0.5 103/ul Normal 0.3-0.8 [facility] Comment on above: Performed By: #### C BC #### [facility] [address] [place] [address] Dr. King Cuellar Monocytes/100 WBC (Bld) 9.7 % Normal 1.7-12.0 [facility] Comment on above: Performed By: #### C BC #### [facility] [address] [place] [address] Dr. King Cuellar NEUT # 2.9 103/ul Normal 1.4-6.5 [facility] Comment on above: Performed By: #### C BC #### [facility] [address] [place] [address] Dr. King Cuellar Neutrophils/100 WBC (Bld) 54.8 % Normal 43.0-75.0 [facility] Comment on above: Performed By: #### C BC #### [facility] [address] [place] [address] Dr. King Cuellar Platelet mean volume (Bld) [Entitic vol] 9.7 fL Normal 9.5-13.5 [facility] Comment on above: Performed By: #### C BC #### [facility] [address] [place] [address] Dr. King Cuellar PLT 238 103/ul Normal 150-450 [facility] Comment on above: Performed By: #### C BC #### [facility] [address] [place] [address] Dr. King Cuellar RBC 5.16 106/ul Normal 4.70-6.10 [facility] Comment on above: Performed By: #### C BC #### [facility] [address] [place] [address] Dr. King Cuellar WBC 5.3 103/ul Normal 4.0-11.0 [facility] Comment on above: Performed By: #### C BC #### [facility] [address] [place] [address] Dr. King Cuellar GLYCOHEMOGLOBIN A1Con 2021 ADA RECOMMENDATION ADA THERAPEUTIC TARG ET 6.0 - 7.0 ACTION SUGGESTED > 7.0 Normal [facility] Comment on above: Performed By: #### A 1C #### [facility] [address] [place] [address] Dr. King Cuellar Glucose [Mass/Vol] 111 mg/dL Normal [facility] Comment on above: Performed By: #### A 1C #### [facility] [address] [place] [address] Dr. King Cuellar HbA1c (Bld) [Mass fraction] 5.5 % Normal <=6.0 [facility] Comment on above: Performed By: #### A 1C #### [facility] [address] [place] [address] Dr. King Cuellar LIPID PROFILEon 11-07-2021 CHOL-HDL RATIO NORM SEE BELOW Normal [facility] Comment on above: Result Comment: 3.3 - 4.4 LOW RISK 4.4 - 7.1 AVERAGE RISK 7.1 - 11.0 MODERATE RISK >11.0 HIGH RISK Performed By: #### L IPID, CMP #### [facility] [address] [place] [address] Dr. King Cuellar Cholesterol [Mass/Vol] 150 mg/dL Normal <=200 [facility] Comment on above: Performed By: #### L IPID, CMP #### [facility] [address] [place] [address] Dr. King Cuellar Cholesterol in HDL [Mass/Vol] 72 mg/dL Normal [facility] Comment on above: Performed By: #### L IPID, CMP #### [facility] [address] [place] [address] Dr. King Cuellar Cholesterol in LDL [Mass/Vol] 64.2 mg/dL Normal [facility] Comment on above: Performed By: #### L IPID, CMP #### [facility] [address] [place] [address] Dr. King Cuellar Cholesterol.total/Ch olesterol in HDL [Mass ratio] 2.1 {ratio} Normal [facility] Comment on above: Performed By: #### L IPID, CMP #### [facility] [address] [place] [address] Dr. King Cuellar HDL NORMAL > or = 60 mg/dl - LO W CARDIOVASCULAR RISK <40 mg/dl - HIGH CARDIOVASCULAR RISK Normal [facility] Comment on above: Performed By: #### L IPID, CMP #### [facility] [address] [place] [address] Dr. King Cuellar LDL CALC NORMAL SEE BELOW Normal [facility] Comment on above: Result Comment: <100 mg/dl OPTIMAL 100 - 129 mg/dl NEAR OR ABOVE OPTIMAL 130 - 159 mg/dl BORDERLINE HIGH 160 - 189 mg/dl HIGH >190 mg/dl VERY HIGH Performed By: #### L IPID, CMP #### [facility] [address] [place] [address] Dr. King Cuellar Triglyceride [Mass/Vol] 69 mg/dL Normal <=150 [facility] Comment on above: Performed By: #### L IPID, CMP #### [facility] [address] [place] [address] Dr. King Cuellar VLDL CALC 13.8 mg/dL Normal [facility] Comment on above: Performed By: #### L IPID, CMP #### [facility] [address] [place] [address] Dr. King Cuellar PROF 14(COMP METB)on 022 Albumin [Mass/Vol] 3.8 g/dL Normal 3.5-5.0 [facility] Comment on above: Performed By: #### L IPID, CMP #### [facility] [address] [address] [address] King Cuellar Albumin/Globulin [Mass ratio] 1.2 {ratio} Normal [facility] Comment on above: Performed By: #### L IPID, CMP #### [facility] [address] [address] [address] King Cuellar ALP [Catalytic activity/Vol] 77 U/L Normal 38-126 [facility] Comment on above: Performed By: #### L IPID, CMP #### [facility] [address] [address] [address] King Cuellar ALT [Catalytic activity/Vol] 45 U/L Normal 21-72 [facility] Comment on above: Performed By: #### L IPID, CMP #### [facility] [address] [place] [address] Dr. King Cuellar Anion gap [Moles/Vol] 9.7 mmol/L Normal [facility] Comment on above: Performed By: #### L IPID, CMP #### [facility] [address] [place] [address] Dr. King Cuellar AST [Catalytic activity/Vol] 49 U/L Normal 17-59 [facility] Comment on above: Performed By: #### L IPID, CMP #### [facility] [address] [place] [address] Dr. King Cuellar Bilirubin [Mass/Vol] 0.5 mg/dL Normal 0.2-1.3 [facility] Comment on above: Performed By: #### L IPID, CMP #### [facility] [address] [place] [address] Dr. King Cuellar Calcium [Mass/Vol] 8.9 mg/dL Normal 8.4-10.2 [facility] Comment on above: Performed By: #### L IPID, CMP #### [facility] [address] [place] [address] Dr. King Cuellar Chloride [Moles/Vol] 104 mmol/L Normal 98-107 [facility] Comment on above: Performed By: #### L IPID, CMP #### [facility] [address] [address] [address] King Cuellar CO2 [Moles/Vol] 30.8 mmol/L Critically high 22.0-30.0 [facility] Comment on above: Performed By: #### L IPID, CMP #### [facility] [address] [address] [address] King Cuellar Creatinine [Mass/Vol] 1.00 mg/dL Normal 0.66-1.25 [facility] Comment on above: Performed By: #### L IPID, CMP #### [facility] [address] [address] [address] King Cuellar EGFR-AF [facility] >60 Normal >=60 [facility] Comment on above: Performed By: #### L IPID, CMP #### [facility] [address] [address] [address] King Cuellar EGFR-NON AF [facility] >60 Normal >=60 [facility] Comment on above: Performed By: #### L IPID, CMP #### [facility] [address] [place] [address] Dr. King Cuellar Globulin (S) [Mass/Vol] 3.1 g/dL Normal [facility] Comment on above: Performed By: #### L IPID, CMP #### [facility] [address] [place] [address] Dr. King Cuellar Glucose [Mass/Vol] 96 mg/dL Normal 74-106 [facility] Comment on above: Performed By: #### L IPID, CMP #### [facility] [address] [address] [address] King Cuellar Potassium [Moles/Vol] 4.5 mmol/L Normal 3.4-5.0 [facility] Comment on above: Performed By: #### L IPID, CMP #### [facility] [address] [address] [address] King Cuellar Protein [Mass/Vol] 6.9 g/dL Normal 6.1-8.2 [facility] Comment on above: Performed By: #### L IPID, CMP #### [facility] [address] [address] [address] King Cuellar Sodium [Moles/Vol] 140 mmol/L Normal 137-145 [facility] Comment on above: Performed By: #### L IPID, CMP #### [facility] [address] [address] [address] King Cuellar Urea nitrogen [Mass/Vol] 18.0 mg/dL Normal 9.0-20.0 [facility] Comment on above: Performed By: #### L IPID, CMP #### [facility] [address] [address] [address] King Cuellar Urea nitrogen/Creatinine [Mass ratio] 18.0 mg/mg Normal [facility] Comment on above: Performed By: #### L IPID, CMP #### [facility] [address] [address] [address] King Cuellar LUMB SP COMP W FLEX/EXT 6 VW Son 08-09-2021 LUMB SP COMP W FLEX/EXT 6 VWS STUDY: LUMB SP COMP W FLEX/EXT 6 VWS ; 08/09/2021 10:47 am INDICATION: PAIN. COMPARISON: 02/08/2021 ACCESSION NUMBER(S): [id number] ORDERING CLINICIAN: Solomon Gonzales FINDINGS: Interval L4 laminectomy. Metallic interbody graft at L5-S1 appears unchanged. No new fracture, subluxation, or disc height loss. Moderate multilevel degenerative disc height loss similar to the prior exam. Slight retrolisthesis L3-4. Multilevel facet arthropathy. No definite pars defects. No instability on flexion or extension. Degenerative changes of the hips. IMPRESSION: Interval L4 laminectomy. Otherwise unchanged postoperative appearance of the lumbosacral spine without new instability. Normal [facility] COVID-19 Antigenon 1 COVID-19 Antigen Healthcare Worker?: N Johnny Reference Johnny Reference Negative SARS-CoV+SARS-CoV-2 (COVID-19) Ag [Presence] in Respiratory specimen by Rapid immunoassay Negative for SARS Antigen by RADHIKA COVID19 Blank Space Johnny Disclaimer Negative results, from patients with symptom Johnny Disclaimer onset beyond five days, should be treated as Johnny Disclaimer presumptive and confirmation with a molecular Johnny Disclaimer assay, if necessary, for patient management, Johnny Disclaimer may be performed. Negative results do not rule Johnny Disclaimer out COVID-19 and should not be used as the sole Johnny Disclaimer basis for treatment or patient management Johnny Disclaimer decisions, including infection control decisions. Johnny Disclaimer Negative results should be considered in the Johnny Disclaimer context of a patient's recent exposures, history Johnny Disclaimer and the presence of clinical signs and symptoms Johnny Disclaimer consistent with COVID-19. COVID19 Blank Space Johnny Disclaimer The Johnny SARS Antigen RADHIKA does not differentiate Johnny Disclaimer between SARS-CoV and SARS-CoV-2. COVID19 Blank Space Johnny Disclaimer This test was developed and its performance Johnny Disclaimer characteristic determined by [facility] and Johnny Disclaimer validated at [facility]. This Johnny Disclaimer test has not been FDA cleared or approved. This Johnny Disclaimer test has been authorized by FDA under an Emergency Use Johnny Disclaimer Authorization (EUA). This test has been validated Johnny Disclaimer in accordance with the FDA's Guidance Document (Policy Johnny Disclaimer for Diagnostics Testing in Laboratories Certified to Johnny Disclaimer Perform High Complexity Testing under CLIA prior to Johnny Disclaimer Emergency Use Authorization for Coronavirus Johnny Disclaimer iseas during the Public Health Emergency) Johnny Disclaimer issued on December 18, 2019. This test is only authorized Johnny Disclaimer for the duration of time the declaration that Johnny Disclaimer circumstances exist justifying the authorization of Johnny Disclaimer the emergency use of in vitro diagnostic tests for Johnny Disclaimer detection of SARS-CoV-2 virus and/or diagnosis of Johnny Disclaimer COVID-19 infection under section 564(b)(1) of the Johnny Disclaimer Act, 21 U.S.C. 360bbb-3(b)(1), unless the Johnny Disclaimer authorization is terminated or revoked sooner. PERFORMED BY: [place] [id number] PATHOLOGIST MANAGER OF IT KENNY WELLER M.D. Normal [facility] Comment on above: Performed By: #### S OFRUBI, COVID-19 JOHNNY #### [address] [id number] [facility] Johnny Ag Negativeon 06-15-20 21 Johnny Ag Negative Negative Normal Negative [facility] Comment on above: Result Comment: This is a duplicate Johnny SARS Antigen (RADHIKA) result to be used for statistical tracking purpose only. PERFORMED BY: [place] [id number] PATHOLOGIST MANAGER OF IT KENNY WELLER M.D. Performed By: #### S OFRUBI, COVID-19 JOHNNY #### [address] [address] [facility] z PT Inpatient Discharge Not saurabh 04-10-2021 z PT Inpatient Discharge Note [facility] Patient: NOEMI GARCIA [address] [place] [address] MR#: [id number] PT INPATIENT DISCHARGE NOTE : 69 Service Date: 04/10/21 0724 z PT Inpt. HPI Discharge Note Total number of visits 1 Date of Discharge 04/09/21 Start of Care Date 04/09/21 Final Date of Care 04/09/21 z PT Inpatient AP Discharge Treatment: Therapeutic Activity, Patient Education, Therapeutic Exercise, Gait Training, HEP Treatment Goals Achieved: Yes Plan Discharge from PT Discharge Recommendations Home-No Home Health Care PT Status: DISCHARGED Electronically Signed eSign Date and Time Dora Griffith PT 04/10/21 0725 Normal [facility] Anesthesia Noteon 04-09-2021 Anesthesia Note [facility] Patient: NOEMI GARCIA [address] [place] [id number] MR#: [id number] ANESTHESIA NOTE : Service Date: 04/09/21 1047 Post-anesthesia Note Note Patient assessed post operatively for the following: [x ] Respiratory function, including respiratory rate, airway patency and oxygen saturation [x ] Cardiovascular function, including pulse rate and blood pressure [x ] Mental status [x ] Temperature [x ] Pain [x ] Nausea and vomiting [x ] Postoperative hydration [x ] No Visual Changes Due to the following condition(s) additional monitoring may be necessary: [ ] [x ] No apparent anesthesia complications noted. [ ] Status as per pre-op Electronically Signed eSign Date and Time Ambrocio Bernard 04/09/21 1048 Jovan Tomas MD Normal [facility] CBC W/DIFFon 04-09-2021 Erythrocyte distribution width (RBC) [Ratio] 11.9 % Normal 11.5-14.5 [facility] Comment on above: Performed By: #### L 200.78808, L200.83034 ####Test performed at: [address] [address] Hematocrit (Bld) [Volume fraction] 44.9 % Normal 39.0-55.0 [facility] Comment on above: Performed By: #### L 200.46151, L200.78801 ####Test performed at: [address] [address] Hemoglobin (Bld) [Mass/Vol] 15.0 g/dL Normal 14.0-16.5 [facility] Comment on above: Performed By: #### L 200.82732, L200.47964 ####Test performed at: [place] [address] MCH (RBC) [Entitic mass] 32.8 pg Normal 25.4-34.6 [facility] Comment on above: Performed By: #### L 200.07974, L200.26322 ####Test performed at: [address] [address] MCHC (RBC) [Mass/Vol] 33.4 g/dL Normal 31.5-36.5 [facility] Comment on above: Performed By: #### L 200.47710, L200.87306 ####Test performed at: [address] [address] MCV (RBC) [Entitic vol] 98.0 fL Normal 80.0-100.0 [facility] Comment on above: Performed By: #### L 200.21523, L200.95674 ####Test performed at: [address] [address] NRBC # 0.000 K/uL Normal 0-0.012 [facility] Comment on above: Performed By: #### L 200.21987, L200.15502 ####Test performed at: [address] [address] NRBC % 0.0 /100 WBC Normal 0-0.2 [facility] Comment on above: Performed By: #### L 200.15411, L200.90497 ####Test performed at: [address] [address] Platelet mean volume (Bld) [Entitic vol] 10.7 fL Normal 8.7-12.4 [facility] Comment on above: Performed By: #### L 200.23091, L200.79538 ####Test performed at: [address] [address] Platelets (Bld) [#/Vol] 158 10*3/uL Normal 140-440 [facility] Comment on above: Performed By: #### L 200.93192, L200.38242 ####Test performed at: [address] [address] RBC (Bld) [#/Vol] 4.58 10*6/uL Normal 3.5-5.5 [facility] Comment on above: Performed By: #### L 200.34449, L200.63201 ####Test performed at: [address] [address] WBC (Bld) [#/Vol] 9.0 10*3/uL Normal 3.9-11.0 [facility] Comment on above: Performed By: #### L 200.18546, L200.37465 ####Test performed at: [address] [address] COMP META PANELon 04-09-2021 Albumin [Mass/Vol] 3.4 g/dL Normal 3.4-5.0 [facility] Comment on above: Performed By: #### L 500.59177, L500.80039 ####Test performed at: [address] [address] ALK PHOS TOTAL 64 U/L Normal 45-117 [facility] Comment on above: Performed By: #### L 500.19703, L500.74268 ####Test performed at: [address] [address] ALT [Catalytic activity/Vol] 26 U/L Normal 13-61 [facility] Comment on above: Performed By: #### L 500.66049, L500.39110 ####Test performed at: [address] [address] AST [Catalytic activity/Vol] 32 U/L Normal 15-37 [facility] Comment on above: Performed By: #### L 500.56470, L500.44421 ####Test performed at: [address] [address] BILI TOTAL 0.5 mg/dL Normal 0.2-1.0 [facility] Comment on above: Performed By: #### L 500.24037, L500.63924 ####Test performed at: [address] [address] Calcium [Mass/Vol] 8.8 mg/dL Normal 8.5-10.1 [facility] Comment on above: Performed By: #### L 500.36124, L500.07749 ####Test performed at: [address] [address] Chloride [Moles/Vol] 106 mmol/L Normal 98-107 [facility] Comment on above: Performed By: #### L 500.46341, L500.73340 ####Test performed at: [address] [address] CO2 [Moles/Vol] 30 mmol/L Normal 21-32 [facility] Comment on above: Performed By: #### L 500.35487, L500.82051 ####Test performed at: [address] [address] Creatinine [Mass/Vol] 0.755 mg/dL Normal 0.700-1.300 [facility] Comment on above: Performed By: #### L 500.13501, L500.78429 ####Test performed at: [address] [address] Glucose [Mass/Vol] 122 mg/dL High 70-99 [facility] Comment on above: Result Comment: Fast ing GLUCOSE reference range has been updated per (ADA) [place] [employer]'s recommendation. 12/10/2018 Performed By: #### L 500.17795, L500.24621 ####Test performed at: [address] [address] Potassium [Moles/Vol] 4.7 mmol/L Normal 3.5-5.1 [facility] Comment on above: Performed By: #### L 500.06501, L500.95773 ####Test performed at: [address] [address] Protein [Mass/Vol] 5.6 g/dL Low 6.4-8.2 [facility] Comment on above: Performed By: #### L 500.03329, L500.29486 ####Test performed at: [address] [address] Sodium [Moles/Vol] 140 mmol/L Normal 136-145 [facility] Comment on above: Performed By: #### L 500.88162, L500.16673 ####Test performed at: [address] [address] Urea nitrogen [Mass/Vol] 18 mg/dL Normal 7-18 [facility] Comment on above: Performed By: #### L 500.39775, L500.58645 ####Test performed at: [address] [address] Discharge CCD Assessmenton 0 04-09-2021 Discharge CCD Assessment [facility] Patient: NOEMI GARCIA [address] [place], [place] [id number] MR#: [id number] DISCHARGE CCD ASSESSMENT : 69 Service Date: 04/09/21 1058 Discharge CCD Assessment Assessment Patient discharged home to continue pain control, wound care, and exercises. Electronically Signed eSign Date and Time Natalie Rouse 04/09/21 1058 Solomon Gonzales MD Normal [facility] GFR ESTIMATEon 04-09-2021 IF AMER > 60 Normal > 60 [facility] Comment on above: Result Comment: eGFR (Estimated GFR) Units of measure:mL/min/1.73 meters sq. *CALCULATION REVISED 07/06/2015;IDMS-traceable MDRD equation eGFR is derived from the reexpressed MDRD Study equation using the following parameters: serum creatinine, age, gender and race. An eGFR<60 mL/min/1.73m2 for >3 months is consistent with chronic kidney disease. Refer to KDOQI guidelines for clinical interpretation. Performed By: #### L 500.08975, L500.81363 ####Test performed at: [place] [address] IF non-AFR AMER > 60 Normal > 60 [facility] Comment on above: Performed By: #### L 500.58944, L500.22620 ####Test performed at: [address] [place] [address] Internal Med Progress Noteon 04-09-2021 Internal Med Progress Note [facility] Patient: NOEMI GARCIA [address] [place] [address] MR#: [id number] PROGRESS NOTE - Internal Medicine : 69 Service Date: 04/09/[address] Subjective Primary Resident: Nato Sloan Summary of Stay a 55 yo M w/ PMH of left knee OA AND back pain who is POD 1 s/p bilateral L4-L5 decompressive laminectomy. Surgery went well with no complications, EBL 30cc. He had asymptomatic bradycardia after the surgery which resolved now. Plan is transfer to the floors. Events since last encounter Uneventful Subjective The pt feels OK , he still has 6/10 pain on the surgical site. Otherwise asymptomatic. General Fatigue, Denies Chills, Denies Night sweats HEENT Denies Head Aches, Denies Eye Pain, Denies Ear Pain, Denies Sore Throat Pulmonary Denies Dyspnea, Denies Cough, Denies Pleuritic Chest Pain Cardiovascular Denies Chest Pain, Denies Palpitations, Denies Edema, Denies Lt Headedness Gastrointestinal Denies Nausea, Denies Vomiting, Denies Abdominal Pain, Denies Diarrhea, Denies Constipation Genitourinary Denies Dysuria, Denies Frequency Musculoskeletal Back Pain Neurological Denies Weakness, Denies Numbness, Denies Confusion Objective Exam Vitals and I/O Vital Signs Verdana 4d Result Date Time Pulse Ox 95 04/09 0500 B/P 109/54 04/09 0500 Pulse 86 04/09 0500 Resp 23 04/09 0500 Temp 36.7 04/09 0400 O2 Delivery NASAL CANNULA 04/08 2000 O2 Flow Rate 2 04/08 2000 Intake AND Output Verdana 4d 04/09 2300 04/08 230 Intake Total 600 460 Output Total 330 410 Balance 270 50 Intake, IV 600 400 Oral 0 60 utput, 30 10 rainage Output, Urine 300 400 Patient 80 kg 0 kg eight Weight STAND SCALE PATIENT STATES easurement ethod General Appearance Alert, Oriented X3, Mild Distress HEENT Atraumatic, Mucous Membr. moist/pink Lungs Clear to Auscultation, Normal Air Movement Cardiovascular Regular Rate, Normal S1, Normal S2, No Murmurs, No Gallops Abdomen Normal Bowel Sounds, Soft, No Tenderness Extremities No Edema, No Tenderness/Swelling Neurological Normal Speech, Strength at 5/5 X4 Ext, Sensation Intact Results Results All Laboratory Tests 04/09 0456 Chemistry Sodium (136 - 145 mmol/L) 140 Potassium (3.5 - 5.1 mmol/L) 4.7 Chloride (98 - 107 mmol/L) 106 Carbon Dioxide (21 - 32 mmol/L) 30 BUN (7 - 18 mg/dL) 18 mg/dL) 0.755 Est GFR ( Amer) (> 60) > 60 Est GFR (Non-Af Amer) (> 60) > 60 Glucose (70 - 99 mg/dL) 122 AST (15 - 37 U/L) 32 ALT (13 - 61 U/L) 26 Alkaline Phosphatase (45 - 117 U/L) 64 5.0 gm/dL) 3.4 ematology WBC (3.9 - 11.0 K/uL) 9.0 Hgb (14.0 - 16.5 g/dL) 15.0 Hct (39.0 - 55.0 %) 44.9 Plt Count (140 - 440 K/uL) 158 Assessment/Plan-Internal Med Problem List 1. S/P laminectomy 2. Total knee replacement status 3. Back pain 4. Bradycardia Med Reasons/Tx for Con't stay # S/p bilateral L4-L5 decompressive laminectomy POD#1 Assessment # S/p bilateral L4-L5 decompressive laminectomy POD#1: # Bradycardia (resolved) - Pt reports surgical site pain at 6/10 otherwise asymptomatic. - VSS and physical exam is unremarkable, HR is at 80s-90s now. - Labs: WBC 9, Bands 16% otherwise normal - Pt has had no BMs post op, passed gas. - No couch in, the pt ambulates, he went to the bathroom and passed urine w/ no complications. PLAN: - Pain controlled with opiates, dilaudid dced - IVF - Tylenol - Bisacodyl - Docusate - Milk of magnesia - Soma - Tylenol PRN - Zofran PRN #DVT prophylaxis: - On PCDs - Caprini score 5 points, High risk. Recommended prophylaxis: Pneumatic compression devices AND low dose heparin OR low molecular weight heparin. 1.8% VTE risk 7-10 days total for duration of chemoprophylaxis Be sure to note changes Be sure to note changes DVT Prophylaxis PCD *Attending Attestation Attending Attestation Attending Attestation patient is stable for dc home All pertinent elements of history and physical exam were confirmed by me. Agree with above documentation. The [resident's, PA's, DRUMS TEACHER's] assessment and plan reflect my input. Discussed with documenting provider and patient. Plan is as outlined above. Electronically Signed eSign Date and Time Pedro Luis Sloan [facility] Jyoti White MD 04/09/21 1138 Leonides Llamas RES 04/15/21 1413 Normal [facility] MANUAL DIFFon 04-09-2021 ANISO OCC Normal [facility] Comment on above: Performed By: #### L 200.14413, L200.04948 ####Test performed at: [facility] [address] [place] [address] BAND 16 % High 0-5 [facility] Comment on above: Performed By: #### L 200.00972, L200.88670 ####Test performed at: [address] [address] LYMPH 6 % Low 20-50 [facility] Comment on above: Performed By: #### L 200.89005, L200.25064 ####Test performed at: [address] [address] MONOCYTE 2 % Normal 2-12 [facility] Comment on above: Performed By: #### L 200.89139, L200.72554 ####Test performed at: [address] [address] NEUTROPHIL 76 % Normal 40-80 [facility] Comment on above: Performed By: #### L 200.27496, L200.90881 ####Test performed at: [address] [address] PLT EST ADEQ Normal [facility] Comment on above: Performed By: #### L 200.07021, L200.69494 ####Test performed at: [address] [address] POIK OCC Normal [facility] Comment on above: Performed By: #### L 200.10592, L200.86995 ####Test performed at: [address] [address] SCHISTOCYTES OCC Normal [facility] Comment on above: Performed By: #### L 200.42066, L200.54255 ####Test performed at: [address] [address] TOTAL CELLS 100 #CELLS Normal [facility] Comment on above: Performed By: #### L 200.40919, L200.22759 ####Test performed at: [address] [address] OT Therapy Recommendationson 04-09-2021 OT Therapy Recommendations [facility] Patient: NOEMI GARCIA [address] [address] MR#: [id number] OT THERAPY RECOMMENDATIONS : 69 Service Date: 04/09/21 1551 Therapy Recommendations Therapy Recommendations Recommendations OT EVAL COMPLETED, RECOMMEND D/C HOME WITH FAMILY ASSIST, NO HHC Electronically Signed eSign Date and Time Bryanna Dykes OT 04/09/21 1551 Normal [facility] Orthopedic Progress Noteon 0 04-09-2021 Orthopedic Progress Note [facility] Patient: NOEMI GARCIA [address] [address] MR#: [id number] PROGRESS NOTE - Orthopedic : 69 Service Date: 04/09/21 1208 Subjective Summary of Stay POD#1 s/p bilateral L4-5 decompression and laminectomy, right discectomy Events since last encounter none Subjective Pt is a 55 y/o M w/ PMH of left knee OA AND back pain who is POD#1 s/p bilateral L4-5 decompression and laminectomy, right discectomy. Pt states he is feeling really good compared to before the surgery. He states he used to have really bad low back pain that would radiate down to right leg, causing him to have numbness in tingling in the RLE. Now the pt states he only has 4/10 pain at his incision. Otherwise, the pt denies any chest pain, SOB, RAWLS, N/V/D, numbness, or tingling. He has been up ambulating, eating, drinking, and voiding without difficulty. General Denies Chills, Denies Night sweats, Denies Fatigue HEENT Denies Head Aches, Denies Visual Changes, Denies Sore Throat Pulmonary Denies Dyspnea, Denies Cough, Denies Pleuritic Chest Pain Cardiovascular Denies Chest Pain, Denies Palpitations, Denies Edema, Denies Lt Headedness Gastrointestinal Denies Nausea, Denies Vomiting, Denies Abdominal Pain Genitourinary Denies Dysuria, Denies Frequency Musculoskeletal Back Pain, Denies Neck Pain, Denies Shoulder Pain, Denies Arm Pain, Denies Hand Pain, Denies Leg Pain, Denies Foot Pain Neurological Denies Weakness, Denies Numbness Objective Exam Vitals and I/O Vital Signs Verdana 4d Result Date Time B/P 97/61 04/09 1106 Temp 36.0 04/09 1106 Pulse 66 04/09 1106 Resp 18 04/09 1106 Pulse Ox 95 04/09 0800 O2 Delivery NASAL CANNULA 04/08 2000 O2 Flow Rate 2 04/08 2000 Intake AND Output Verdana 4d 04/09 2300 04/08 2300 Intake Total 720 460 Output Total 350 410 Balance 370 50 Intake, IV 600 400 Oral 120 60 utput, 50 10 rainage Output, Urine 300 400 Patient 79.832 kg 0 kg eight Weight STAND SCALE PATIENT STATES easurement ethod General Appearance Alert, Oriented X3, Cooperative HEENT Atraumatic Lungs Normal Air Movement Neck Supple Cardiovascular Regular Rate Abdomen Soft, No Tenderness Extremities No Clubbing, No Cyanosis, No Edema, Normal Pulses Skin No Rashes, No Breakdown Neurological Strength at 5/5 X4 Ext, Normal Tone, Sensation Intact Psych/Mental Status Mental Status NL, Mood NL Other Physical Findings Surgical dressing to lower back and JENNIFER drain incorporated. A AND Ox3. GALVAN's equally and strong. Hand grasp 5/5. Push/pull 5/5. Neurovacularly and sensations intact. Assessment and Plan - ICD10 Problem List 1. S/P laminectomy 2. Total knee replacement status 3. Back pain 4. Bradycardia Assessment Assessment: Pt is a 68 y/o male that is POD#1 s/p bilateral L4-5 decompression and laminectomy, right discectomy. The pt only has complaints of 4/10 incisional pain. Upon PE, pt is sitting up in a chair in no acute distress with surgical dressing to lower back and JENNIFER drain incorporated. Pt is A AND Ox3. GALVAN's equally and strong. Hand grasp 5/5. Push/pull 5/5. Neurovacularly and sensations intact. Pt is ready to go home. Plan: Pt to be discharged home today. All discharge instructions will be provided to the pt. The pt is aware and agrees to the plan. IM: continue monitoring PT/OT: continue evaluating and treating Pain Control: Percocet DVT PPx: SCD's, ambuating, ankle pumps Electronically Signed eSign Date and Time Natalie Rouse 04/09/21 1217 Solomon Gonzales MD Normal [facility] PT Therapy Recommendationson 04-09-2021 PT Therapy Recommendations [facility] Patient: NOEMI GARCIA [address] [place], [place] [id number] MR#: [id number] PT THERAPY RECOMMENDATIONS : 69 Service Date: 04/09/21 0829 Therapy Recommendations Therapy Recommendations Recommendations PT eval complete. No further acute PT needs. Recommend d/c home /c family assist when medically cleared. Electronically Signed eSign Date and Time Dora Griffith PT 04/09/21 0830 Normal [facility] z OT Inpatient Discharge Not saurabh 04-09-2021 z OT Inpatient Discharge Note [facility] Patient: NOEMI GARCIA [address] [place], [place] [id number] MR#: [id number] OT INPATIENT DISCHARGE NOTE : 69 Service Date: 04/09/21 1551 z OT HPI Discharge Note Total number of visits 1 Date of Discharge 04/09/21 Start of Care Date 04/09/21 z OT Inpatient AP Discharge Treatment Patient Education, Self Care/ADL Training, HEP Equipment Issued Handouts, Home Exercise Plan Treatment Goals Achieved: Yes Plan Follow Up w/ Physician, Discharge from OT DC Recommendations Family Assistance OT Status: DISCHARGED Electronically Signed eSign Date and Time Bryanna Dykes OT 04/09/21 1552 Normal [facility] z OT Inpatient Evaluationon 04-09-2021 z OT Inpatient Evaluation [facility] Patient: NOEMI GARCIA [address] [place] [id number] MR#: [id number] OT INPATIENT EVALUATION : 69 Inpatient OT HPI Date of Service 04/09/21 Time In: 1000 Time Out: 1025 Total Treatment Time (Mins) 25 Visit Reason HNP w/ RADIC LATERAL STENOSIS Surgery Type/Date Surgery Type: Tomas L4-5 decomp. lami Surgery Date: 04/08/21 Hospital Course a 55 yo M w/ PMH of left knee OA AND back pain who is POD 1 s/p bilateral L4-L5 decompressive laminectomy. Srurgery went well with no complications, EBL 30cc. He had asymptomatic bradycardia after the surgery which resolved now. Pt referred to OT for eval and tx Past Medical/Social History Problem List Medical Problems Back pain Bradycardia Surgical Problems S/P laminectomy Total knee replacement status Living Arrangements Home Lives With Family (daughter) Steps to Enter House 1 Stairs Inside House 12 Railings Bilateral Handrails Bedroom Location 2nd Floor Bathroom Location 2nd Floor Shower Tub Tasks Prior to Admission Laundry, Cooking, Cleaning, Shopping, Driving Transportation Method Patient Drives, Family Drives Objective Precautions Back Brace, Lumbar Spine Pain Scale 3 Pain Character Ache Pain Location Back Equipment Drain, Peripheral IV, SCD, Telemetry Orientation Person, Place, Time, Situation Behavior Cooperative Sensation Within Functional Limits Tone Within Functional Limits Hand Dominance Right Coordination Coordination Within Functional Limits Proprioception Within Normal Limits ROM RUE ROM Within Functional Limits LUE ROM Within Functional Limits RLE ROM Within Functional Limits LLE ROM Within Functional Limits Strength RUE Strength 3+/5 LUE Strength 3+/5 RLE Strength 3+/5 LLE Strength 3+/5 Comments Bilateral upper extremities WFLs for participation in management of ADLs and functional mobility tasks. Outcome Measures Jasmina Score Jasmina Score Response Value Feeding Independent 10 Bathing Independent 5 Grooming Independent 5 Dressing Needs Help/Half unaided 5 Bowels Continent 10 Bladder Continent 10 Toilet Independent 10 ransfer(Bed to Chair and Back) Minor Help 10 obility (On Level Surfaces) Independent 15 tairs Independent 10 otal 90 AM-PAC Inpt Daily Activity AM-PAC Inpt Daily Activity Response Value Lower Body Clothing A Little 3 Bathing None 4 Toileting None 4 Upper Body Clothing None 4 Personal Grooming None 4 Eating Meals None 4 Total 23 Comments 10 % disability based on the Jasmina Index ADL Function ADL Function Upper Body Dressing Modified Independent Lower Body Dressing Modified Independent Upper Body Bathing Modified Independent Lower Body Bathing Modified Independent Toileting Modified Independent Feeding Independent Grooming Independent Comments Patient is independent/modified independent with all ADLs and functional mobility tasks. Patient instructed in and performed lower body dressing/ADLs via modified techniques Transfers Transfers Supine to Sit Independent Sit to Stand Independent Stand to Sit Independent Sit to Supine Independent Bed to Chair Independent Chair to Bed Independent Toilet Independent Rolling Modified Independent Static Sitting Balance Good Dynamic Sitting Balance Good Static Standing Balance Good Dynamic Standing Balance Good Treatment Additional Minutes of Tx Performed 10 Remained in Chair All Needs Within Reach Yes Assessment/Plan for Inpt OT DC Recommendations Family Assistance Topic #1 Rehabilitation Techniques Teaching Method: RETURN DEMONSTRATION Outcome: RETURN SKILL DEMO Comments Post Op precautions/issued packet with home going instructions and information regarding adaptive equipment and bathroom DME. Patient performed []. Problems ADL Skills, Activity Tolerance Rehab Potential Good Treatment Tolerance Good Assessment Patient does not demonstrate additional need for skilled OT services at this time. Patient was pleasant, alert, and cooperative throughout the session. Patient Stated Goal: to move better Goals discussed with: Patient Frequency of Therapy Eval Only Duration Until Discharge Treatment Patient Education, Self Care/ADL Training Patient Status DISCHARGED Eval Completed Yes Eval Complexity Low Complexity Treatment Performed Yes Electronically Signed eSign Date and Time Bryanna Dykes OT 04/09/21 1601 Normal [facility] z PT Inpatient Evaluationon 04-09-2021 z PT Inpatient Evaluation [facility] Patient: NOEMI GARCIA [address] [place] [address] MR#: [id number] PT INPATIENT EVALUATION : 69 Service Date: 04/09/21 1113 Inpatient PT HPI Date of Service 04/09/21 Time In: 0812 Time Out: 0832 Total Treatment Time (Mins) 20 Room Number 351 Visit Reason HNP w/ RADIC LATERAL STENOSIS Surgery Type: Tomas L4-5 decomp. lami Surgery Date: 04/08/21 Referral Date 04/08/21 Tx Diagnosis: LOW BACK PAIN Insurance Name [facility] POS [facility] Hospital Course 55 y.o male at [facility] for above sx d/t HNP /c radiculopathy. In PACU pt /c bradycardia, HR 30s/40s, transferred to ICU. PT orders in place encourage ambulation, logroll, ad jericho /c assist, brace OOR. Pt cleared for PT by nursing. Pt sitting in chair, agreeable. Pt reports he was told the brace will be delivered to his room today. Past Medical/Social History Problem List Medical Problems Back pain Bradycardia Surgical Problems S/P laminectomy Total knee replacement status Living Arrangements Home Lives With Family Mobility Aids Crutches Steps to Enter House 1 Stairs Inside House 13 Railings Right Handrail Functional Level Pt denies AD use prior, but reports altered posture/gait d/t back pain and RLE n/t. Indep /c all daily care, but increased time/effort 2nd pain. Denies falls. +works, +drives. Family available upon d/c for assist. Objective Vital Signs HR 61 BP 97/61 SpO2 (%) 94 Comments On RA BP recheck 112/61 sitting Pain Pain Scale 3 Pain Character Ache Pain Location Back Precautions Back Brace, Spinal Equipment BP Cuff, Peripheral IV, Telemetry Dynamic Sitting Balance Good Dynamic Standing Balance Good Comments No instability throughout dynamic standing activity Orientation Person, Place, Time, Situation Behavior Cooperative Sensation Within Functional Limits Endurance Good Posture Rounded Shoulders (5'11 175#) Wound/Skin WFL Coordination Coordination Within Functional Limits ROM Comments WFL Strength Comments At least 3/5 throughout Outcome Measures AM-PAC Inpatient Mobility AM-PAC Inpatient Mobility Response Value Turn Back/Side While Flat WO Bedrails None 4 Move From Lying to Side of Bed WO Bedrails None 4 Move To/From Bed to Chair None 4 Stand Up From Chair Using Arms None 4 Walk in Hospital Room None 4 otal 20 Mobility Transfers Sit to Stand Standby Assist Stand to Sit Supervision Weight Bearing No Restrictions Comments Sit-stand /c BUE support, steady transfer. Verbal review of logroll;pt states understanding. Gait Patient ambulated With Standby Assist With Assistive Device None For (Feet) 75 Comments Pt /c erect posture, step through gait, equal step length tomas, no deviations noted. Distance limited d/t pt not yet having brace. Stairs Comments Verbal review d/t not having brace. Pt states understanding. Treatment Additional Minutes of Tx Performed 8 Remained in Chair All Needs Within Reach Yes Comments Pt instructed on precautions, logroll, activity AND d/c recs. Pt completed seated BLE antiembolics x10, review of written HEP. Pt /c multiple questions regarding home going and progression;all addressed as able. Assessment/Plan for Inpt PT Discharge Recommendations Home-No Home Health Care Topic #1 Role of PT, precautions, HEP Teaching Method: TEACHBACK Outcome: VERBALIZED/ADEQ TEACHBACK Problems Decreased ROM, Pain Rehab Potential Good Treatment Tolerance Good Assessment Pt presents /c above problem list s/p lumbar sx /c postop pain/precautions and altered transfer/mobility technqiues. Pt demonstrates ability to safely perform functional tasks at supervision to mod I level. No further acute PT needs. Recommend d/c home /c family assist. Patient Stated Goal: NA Patient Status DISCHARGED Eval Completed Yes Eval Complexity Low Treatment Performed Yes Electronically Signed eSign Date and Time KainDora hassan PT 04/10/21 0724 Normal [facility] Internal Med Progress Noteon 04-08-2021 Internal Med Progress Note [facility] Patient: NOEMI GARCIA [address] [id number] MR#: [id number] PROGRESS NOTE - Internal Medicine : 69 Service Date: 04/08/21 1822 Assessment/Plan-Internal Med Be sure to note changes Be sure to note changes Electronically Signed eSign Date and Time Pedro Luis Sloan Katarzyna MD Somoza-Cano, Francisco RES Normal [facility] Internal Medicine Consultati onon 04-08-2021 Internal Medicine Consultation [facility] Patient: NOEMI GARCIA [address] [id number] MR#: [id number] CONSULTATION - Internal Medicine : 69 Service Date: 04/08/21 1614 History of Present Illness Referring Physician Solomon Gonzales MD Consulted Physician Jyoti White MD Reason for Consult Medical management Chief Complaint/Present Illness: Back pain HPI a 55 yo M w/ PMH of OA and back pain who is POD 0 s/p bilateral L4-L5 decompressive laminectomy. IM was consulted for post op care. Procedure done under general anesthesia. EBL 30cc . Pt tolerated the procedure well w/o complications. Pt was evaluated post op. He had a HR of 30s-40s. Transferred to the ICU, his vital are now wnl with a HR of 56. Plan is observation. Medical/Surgical History Past Medical History Transfusion Status CONSERVATION Past Surgical History PSH Other/Comment Left knee replacement 2017 Back surgery 2020 Hernia repair Family/Social History Social History Tobacco Use NONE Packs/Day * Alcohol YES Amount OCCASIONAL How Often OCCASIONALLY Drug Use NO Living Arrangements APARTMENT Allergies/Home Medications Allergies Coded Allergies: NO KNOWN DRUG INTOLERANCES (03/19/02) Uncoded Allergies: Drug (RAFAEL) Allergies: NO Food/Other Allergies: NO Latex Allergy: NO NO (04/28/09) Reconcile Medications Scheduled Medications Cephalexin Monohydrate* (Keflex 250MG Capsule*) 250 MG UDCAP 250 MG PO BID infection prophylaxis 4 Days #16 UDCAP, Ref 0 take 2 pills, twice a day Prescribed by NATALIE ROUSE on 04/09/21 Last Action: Edited on 04/09/[address] LY Scheduled PRN Medications Carisoprodol 350 MG TABLET 350 MG PO TIDPRN PRN Spasms 7 Days #21 TABLET, Ref 0 Prescribed by NATALIE ROUSE on 04/09/21 Last Action: Edited on 04/09/[address] LY oxyCODONE HCl 5mg AND Acetaminophen 325mg * (Percocet 5mg/325mg Tablet *) 1 EACH TABLET 1 UDTAB PO Q4-6H PRN PRN postop pain 7 Days #42 TABLET, Ref 0 Prescribed by NATALIE ROUSE on 04/09/21 Last Action: Edited on 04/09/[address] LY Miscellaneous Medications Docusate Sodium * (Colace *) 100 MG CAPSULE 100 MG PO, Ref 0 (Reported) Entered as Reported by NATALIE ROUSE on 04/09/21 1055 Last Action: Edited on 04/09/[address] LY Review of Systems Review of Systems Constitutional Reports: Fatigue. Denies: Fever, Chills. EENT Denies: Vision Change, Sore Throat, Hearing Loss. Cardiovascular Denies: Chest Pain, Pain on Exertion, Dyspnea on Exertion, Palpitations, Syncope, Leg Swelling. Pulmonary Denies: Pleuritic Chest Pain, Dyspnea, Cough. GI Denies: Abdominal Pain, Nausea, Vomiting, Diarrhea, Constipation. Denies: Dysuria, Hesitancy, Urgency. Musculoskeletal Reports: Back Pain. Skin Reports: Back Pain, Joint Pain. Denies: Extremity Pain, Calf Pain, Leg Pain, Neck Pain. Neuro Denies: Headache, Syncope, Dizziness, Numbness, Weakness. Psychiatric Denies: Depression, Anxiety. Physical Exam Vital Signs Vital Signs Vital Signs Verdana 4d Result Date Time Pulse Ox 98 04/08 1138 B/P 121/83 04/08 1138 Temp 36.6 04/08 1138 Pulse 56 04/08 1138 Resp 18 04/08 1138 Appearance Appearance Appears well, Awake, Alert Cm: 180.34 [id number] BMI 24.5 Patient is Normal (BMI) Pain Scale 6 Neck Neck Normal inspection, No JVD, Supple, No lymphadenopathy HEENT HEENT Head atraumatic, Eyes normal inspection, Hearing grossly normal, Mucosa moist Respiratory Respiratory Lungs sound clear, Respirations non-labored Lung Sounds by Lobe L LOWER LOBE Clear, L UPPER LOBE Clear, R LOWER LOBE Clear, R MIDDLE LOBE Clear, R UPPER LOBE Clear Respiratory-Expanded Exam No: Resp Distress, Splinting, Stridor. CVS Cardiovascular Rhythm regular, Normal heart sounds, Slow rate Cardiovascular-Expanded Exam Positive: Bradycardia. No: JVD, S3 gallop, S4 gallop. Neuro * Document results of Cranial Nerve Asmt for all pts. Neurological Alert, Oriented x 3, No motor deficit, No sensory deficit Mental Status Oriented x 3 Speech/Language No: Dysarthric, Expressive aphasia, Comprehensive aphasia, Mixed aphasia. Motor Exam L lower extrmty Normal power, L upper extrmty Normal power, R lower extrmty Normal power, R upper extrmty Normal power Sensory Exam L lower extrmty Normal light touch, L upper extrmty Normal light touch, R lower extrmty Normal light touch, R upper extrmty Normal light touch Neuro-Expanded No: Confusion, Disorientation to Person, Disorientation to Place, Disorientation to Time, Speech Slurred, Facial droop, Extremity weakness, Sensory loss. Abdomen/Pelvis Abdomen Bowel sounds present, Abdomen soft, Non-tender, No distension Abdomen/GI - Expanded Exam No: Rigidity, Distention, Tenderness, Guarding, Rebound. Extremity Extremity Normal appearance, Sensation intact, Motor (more content not included)... Normal [facility] OPERATIVE REPORTon OPERATIVE REPORT NAME: ASHOK GARCIA MR#: [id number] SURGEON: Solomon Gonzales MD DATE OF SURGERY: 04/08/2021 OPERATIVE REPORT PREOPERATIVE DIAGNOSIS: Herniated disk with radiculopathy and stenosis. POSTOPERATIVE DIAGNOSIS: Lumbar stenosis. OPERATIVE PROCEDURE: Bilateral L4-L5 decompressive laminectomy. TOOLMAKER GRADE THREE: Av. ANESTHESIA: General. DETAILS OF PROCEDURE: After anesthesia, the patient was placed prone on the spine frame. Care was taken to avoid injury to the eyes, the axilla, and the median and ulnar nerves. The back was prepped and draped in usual fashion. The incision was planned using a needle and C-arm. A longitudinal incision was made in the old scar with sharp dissection of subcutaneous tissues and fascia. Hemostasis was maintained with electrocautery. Paraspinal muscles were dissected subperiosteally and the interspace between the spinous processes of L4 and L5 were remarked with a Hardik and x-ray confirmed position. The spine was skeletonized. The spinous process of L4 was removed subtotally with Leksell rongeur. The lamina was thinned with a Leksell rongeur and then a sara. Subtotal laminectomy was performed first on the right side with Kerrison rongeurs. A partial medial facetectomy was performed with a chisel and Kerrison rongeurs. The ligamentum was dissected free from the dura and removed with Kerrison rongeurs. The ligamentum was quite thickened. Foraminotomy was then performed on the right with straight and curved Kerrison rongeurs. The lateral recess was decompressed with straight and curved Kerrison rongeurs. After thorough decompression on the right, the epidural space was palpated with a Maldonado hook. The foramen was patent. The exiting L4 root well decompressed, the lateral recess was well decompressed, and the traversing L5 root was well decompressed. Attention was turned to the left side, where a subtotal laminectomy was performed with Kerrison rongeurs. Partial medial facetectomy was performed with a chisel and Kerrison rongeurs. The ligamentum was dissected free from the dura and removed with Kerrison rongeurs. Foraminotomy was performed with straight and curved Kerrison rongeurs. The lateral recess was decompressed with straight and curved Kerrison rongeurs. After thorough decompression on the left, the epidural space was palpated with a Maldonado hook. The foramen was patent. The exiting L4 root well decompressed, the lateral recess was well decompressed, and traversing L5 root was well decompressed. Attention was then turned to the right side again, where the dura was gently dissected free and gently [facility] PT NAME: NOEMI GARCIA MR#: [id number] [address] [place], [place] [address] ACCT: [id number] : 69 OPERATIVE REPORT mobilized to the midline. The epidural vessels were coagulated with the bipolar. A nerve hook was used to explore the annulus and we found no evidence of herniation or extrusion at this time. A diskectomy was therefore not performed. It was felt that the area was adequately decompressed with the laminectomy and decompression. The wound was then irrigated with saline and Betadine solution. Hemostasis was achieved with FloSeal. A silastic drain was left deep in the wound exiting through separate stab incision. The paraspinal muscles were injected with 0.5% Marcaine. The fascia, subcutaneous tissues, and skin were closed in the usual manner. Dressings were applied. The patient was awoken and taken to recovery room in excellent condition. There were no complications. SOLOMON GONZALES MD JFS/MODL/[id number] E/S: Solomon Gonzales MD 06/13/21 0936 Electronically Signed [facility] PT NAME: NOEMI GARCIA MR#: [id number] [address] [place], [place] [address] ACCT: [id number] : 69 OPERATIVE REPORT Normal [facility] Primary Residenton 1 Primary Resident [facility] Pt Name: NOEMI GARCIA MR#: [id number] [address] [place] [address] ACCT: [id number] [place] [address] : 69 Service Date: 04/08/21 1821 Primary Resident/Call Primary Resident: [id number] After Hours Call: [phone] ICU Resident Electronically Signed eSign Date and Time Pedro Luis Sloan 04/08/21 1821 Normal [facility] LUMBAR SPINE 2 OR 3 VIEWSon 04-07-2021 LUMBAR SPINE 2 OR 3 VIEWS STUDY: LUMBAR SPINE 2 OR 3 VIEWS; 04/08/2021 3:15 pm INDICATION: BILATERAL L4-L5 DECOMPRESSION AND LAMINECTOMY,DISCECTOMY. COMPARISON: None. ACCESSION NUMBER(S): [id number] ORDERING CLINICIAN: Solomon Gonzales FINDINGS: Intraoperative fluoroscopy of the lumbar spine was performed for localization. IMPRESSION: As above Normal [facility] BASIC MET PANELon 04-05-2021 Anion gap [Moles/Vol] 8 mmol/L Normal 6-18 [facility] Comment on above: Performed By: #### L 500.63065, L500.14012 #### Test performed at: [address] [address] Calcium [Mass/Vol] 8.8 mg/dL Normal 8.5-10.1 [facility] Comment on above: Performed By: #### L 500.48377, L500.37385 #### Test performed at: [address] [address] Chloride [Moles/Vol] 106 mmol/L Normal 98-107 [facility] Comment on above: Performed By: #### L 500.44340, L500.42752 #### Test performed at: [address] [address] CO2 [Moles/Vol] 29 mmol/L Normal 21-32 [facility] Comment on above: Performed By: #### L 500.54929, L500.68027 #### Test performed at: [address] [address] Creatinine [Mass/Vol] 0.840 mg/dL Normal 0.700-1.300 [facility] Comment on above: Performed By: #### L 500.76400, L500.36853 #### Test performed at: [place] [address] Glucose [Mass/Vol] 90 mg/dL Normal 70-99 [facility] Comment on above: Result Comment: Fast ing GLUCOSE reference range has been updated per (ADA) [place] [employer]'s recommendation. 12/10/2018 Performed By: #### L 500.83902, L500.98924 #### Test performed at: [address] [address] OSM 291 mosm/kg Normal 270-300 [facility] Comment on above: Performed By: #### L 500.41518, L500.66446 #### Test performed at: [address] [address] Potassium [Moles/Vol] 4.0 mmol/L Normal 3.5-5.1 [facility] Comment on above: Performed By: #### L 500.16092, L500.25783 #### Test performed at: [address] [address] Sodium [Moles/Vol] 139 mmol/L Normal 136-145 [facility] Comment on above: Performed By: #### L 500.04821, L500.75546 #### Test performed at: [address] [address] Urea nitrogen [Mass/Vol] 22 mg/dL High 7-18 [facility] Comment on above: Performed By: #### L 500.84652, L500.93858 #### Test performed at: [address] [address] CBC W/DIFFon 04-05-2021 BASO ABS 0.0 K/uL Normal 0.0-0.2 [facility] Comment on above: Performed By: #### L 200.09814 #### Test performed at: [address] [address] Basophils/100 WBC (Bld) 0.3 % Normal [facility] Comment on above: Performed By: #### L 200.27745 #### Test performed at: [address] [address] EOS ABS 0.2 K/uL Normal 0.0-0.5 [facility] Comment on above: Performed By: #### L 200.36953 #### Test performed at: [address] [address] Eosinophils/100 WBC (Bld) 2.1 % Normal [facility] Comment on above: Performed By: #### L 200.71701 #### Test performed at: [address] [address] Erythrocyte distribution width (RBC) [Ratio] 12.2 % Normal 11.5-14.5 [facility] Comment on above: Performed By: #### L 200.28857 #### Test performed at: [address] [address] Hematocrit (Bld) [Volume fraction] 46.2 % Normal 39.0-55.0 [facility] Comment on above: Performed By: #### L 200.47743 #### Test performed at: [address] [address] Hemoglobin (Bld) [Mass/Vol] 15.4 g/dL Normal 14.0-16.5 [facility] Comment on above: Performed By: #### L 200.06280 #### Test performed at: [address] [address] IG % 0.3 % Normal [facility] Comment on above: Performed By: #### L 200.47363 #### Test performed at: [address] [address] IG ABS 0.02 K/uL Normal 0-0.05 [facility] Comment on above: Performed By: #### L 200.46468 #### Test performed at: [address] [address] Lymphocytes (Bld) [#/Vol] 1.7 10*3/uL Normal 1.2-3.5 [facility] Comment on above: Performed By: #### L 200.55023 #### Test performed at: [address] [address] Lymphocytes/100 WBC (Bld) 23.7 % Normal [facility] Comment on above: Performed By: #### L 200.45792 #### Test performed at: [address] [address] MCH (RBC) [Entitic mass] 33.1 pg Normal 25.4-34.6 [facility] Comment on above: Performed By: #### L 200.11426 #### Test performed at: [address] [address] MCHC (RBC) [Mass/Vol] 33.3 g/dL Normal 31.5-36.5 [facility] Comment on above: Performed By: #### L 200.60355 #### Test performed at: [address] [address] MCV (RBC) [Entitic vol] 99.4 fL Normal 80.0-100.0 [facility] Comment on above: Performed By: #### L 200.18398 #### Test performed at: [address] [address] MONO ABS 0.6 K/uL Normal 0.0-1.0 [facility] Comment on above: Performed By: #### L 200.50904 #### Test performed at: [address] [address] Monocytes/100 WBC (Bld) 9.1 % Normal [facility] Comment on above: Performed By: #### L 200.05013 #### Test performed at: [address] [address] NEUTROPHIL ABS 4.5 K/uL Normal 1.4-6.6 [facility] Comment on above: Performed By: #### L 200.15005 #### Test performed at: [address] [address] Neutrophils/100 WBC (Bld) 64.5 % Normal [facility] Comment on above: Performed By: #### L 200.06068 #### Test performed at: [address] [address] NRBC # 0.000 K/uL Normal 0-0.012 [facility] Comment on above: Performed By: #### L 200.78093 #### Test performed at: [address] [address] NRBC % 0.0 /100 WBC Normal 0-0.2 [facility] Comment on above: Performed By: #### L 200.12210 #### Test performed at: [address] [address] Platelet mean volume (Bld) [Entitic vol] 11.8 fL Normal 8.7-12.4 [facility] Comment on above: Performed By: #### L 200.23034 #### Test performed at: [address] [address] Platelets (Bld) [#/Vol] 188 10*3/uL Normal 140-440 [facility] Comment on above: Performed By: #### L 200.43405 #### Test performed at: [address] [address] RBC (Bld) [#/Vol] 4.65 10*6/uL Normal 3.5-5.5 [facility] Comment on above: Performed By: #### L 200.74701 #### Test performed at: [place] [address] [place] [address] WBC (Bld) [#/Vol] 7.0 10*3/uL Normal 3.9-11.0 [facility] Comment on above: Performed By: #### L 200.91743 #### Test performed at: [place] [address] [place] [address] CONSULTATION REPORTon 2020 CONSULTATION REPORT NAME: ASHOK GARCIA MR#: [id number] [employer] TURRET LATHE OPERATOR: Arlene Godwin MD DATE OF CONSULTATION: 04/05/2021 CONSULTATION HISTORY OF PRESENT ILLNESS: Mr. Garcia is a 55-year-old gentleman and I have been consulted by Dr. Solomon Gonzales for preoperative clearance before undergoing L4-L5 decompressive laminectomy and diskectomy. He has back pain radiating to the legs. He is well-built and he has good functional capacity of over 4 METS. He has had a left knee replacement done in the past. He denies chest pain, shortness of breath, nausea, vomiting, diarrhea, constipation, blood in the stools or black stools. PAST HISTORY: Significant for osteoarthritis of the knees and back pain. SOCIAL HISTORY: He is not a smoker. No major use of alcohol or drugs. ALLERGIES: No known drug allergies. MEDICATIONS: He takes nothing currently, except Advil, Aleve, which he has stopped. PREVIOUS SURGERIES: Include left knee replacement, back surgery and hernia repair. PHYSICAL EXAMINATION: VITAL SIGNS: He is 5 feet 11 inches tall, 176 pounds, 98, 65, 110/80, and 16, pulse ox is 98% on room air. HEENT: Atraumatic head. Pupils are equal, reactive. Oral mucosa is normal. NECK: Supple. No thyromegaly. No carotid bruit. LUNGS: Clear. HEART: S1, S2 present. Regular rate and rhythm. ABDOMEN: Soft, nontender. Bowel sounds are present. NEUROLOGIC: He is awake, alert, oriented x3. Cranial nerves, motor, sensory, reflexes are normal. He has a left knee replacement and he has back pain radiating to the right leg more. IMPRESSION: 1. Preop clearance for L4-L5 decompressive laminectomy and diskectomy. 2. Osteoarthritis and chronic back pain, otherwise normal physical. PLAN: The patient's physical is within acceptable limits. His functional capacity is well over 4 METS. EKG is within acceptable limits. I am going to do a CBC and a BMP. He is cleared for anesthesia with acceptable risk. [facility] PT NAME: NOEMI AGRCIA MR#: [id number] [address] [place], [place] [address] ACCT: [id number] : 67 CONSULTATION Thank you for the courtesy of this consultation. ARLENE GODWIN MD MS/MODL/[id number] E/S: Arlene Godwin MD 04/06/21 1643 Electronically Signed [facility] PT NAME: NOEMI GARCIA MR#: [id number] [address] [place], [place] [address] ACCT: [id number] : 67 CONSULTATION Normal [facility] CORONAVIRUSon 04-05-2021 SARS-CoV-2 (COVID-19) RNA CHICA+probe Ql (Unsp spec) Methodology: PCR Negative results do not preclude SARS-CoV-2 infection and should not be used as the sole basis for patient management decisions. Negative results must be combined with clinical observations, patient history, and epidemiological information. False-negative results may occur if the viruses are present at a level that is below the analytical sensitivity of the assay or if the virus has genomic mutations, insertions, deletions, or rearrangements or if performed very early in the course of illness. Results may be affected by the quality of the sample collected. Simplexa COVID-19 Direct is only for use under the Food and Drug Administration's Emergency Use Authorization. The Simplexa COVID-19 Direct Letter of Authorization, along with the authorized Fact Sheet for Healthcare Providers, the authorized Fact Sheet for Patients, and authorized labeling are available on the FDA website: https://www.fda.gov/Medical Devices/Safety/ EmergencySituations/btd6250 96.htm COVID-19 Negative for COVID-19 (SARS-CoV-2 RNA) Normal [facility] Comment on above: Order Comment: CBN: YES Line [place]: MAIN COVID Testing: PRE-OP/PROCEDURE SCREEN Comment: 04/08 AGE at Spec DORINA 55 Report age at specimen DORINA? Y First test: UNKNOWN Employed in Healthcare: NO Symptomatic as defined by CDC: NO Hospitalized for COVID-19? NO ICU: NO Resident in a Congregated Care Setting: NO Order Date: 04/05/21 : Not Performed By: #### M 400.37066 #### Test performed at: [place] [address] GFR ESTIMATEon 04-05-2021 IF AMER > 60 Normal > 60 [facility] Comment on above: Result Comment: eGFR (Estimated GFR) Units of measure:mL/min/1.73 meters sq. *CALCULATION REVISED 07/06/2015;IDMS-traceable MDRD equation eGFR is derived from the reexpressed MDRD Study equation using the following parameters: serum creatinine, age, gender and race. An eGFR<60 mL/min/1.73m2 for >3 months is consistent with chronic kidney disease. Refer to KDOQI guidelines for clinical interpretation. Performed By: #### L 500.68594, L500.97078 #### Test performed at: [place] [address] IF non-AFR AMER > 60 Normal > 60 [facility] Comment on above: Performed By: #### L 500.02571, L500.71879 #### Test performed at: [place] [address] MRI LUMBAR SP W & WO CONTRAS Ton 02-23-2021 MRI LUMBAR SP W & WO CONTRAST STUDY: MRI LUMBAR SP W WO CONTRAST; 02/23/2021 11:54 am INDICATION: POSTLAMINECTOMY SYNDROME. COMPARISON: None. ACCESSION NUMBER(S): [id number] ORDERING CLINICIAN: Solomon Gonzales TECHNIQUE: Sagittal STIR, sagittal T2, sagittal T1, axial T2, axial T1, as well as post gadolinium sagittal axial T1 weighted MRI images of the lumbar spine were obtained. The patient received 7.5 mL of Gadavist gadolinium intravenously. FINDINGS: Postoperative changes are identified compatible with a previous discectomy and fusion at the L5/S1 level. There is metallic artifact from interbody fusion device is noted along the disc space at the L5/S1 level. There has been partial resection of the L5 lamina and spinous process. There is 2 mm of retrolisthesis of L4 on L5, L3 on L4, and L2 on L3. The coronal evening sitter images demonstrate a dextrocurvature of the lumbar spine. There are degenerative signal changes noted along the endplates within the mid and lower lumbar region. The visualized spinal cord demonstrates no signal abnormality or abnormal enhancement within it. The conus is normally positioned terminating at the T12 level. There is diminished disc signal at the L2/3 and L3/4 as well as to a lesser degree L4/5 levels compatible degenerative disc disease. At the L5/S1 level, there are postoperative changes compatible with a previous discectomy and cervical fusion as well as partial resection of the L5 lamina and spinous process. There is no significant narrowing of the thecal sac within the spinal canal. There is ptjz-xi-[id number] right and mild left-sided neural foraminal narrowing. At the L4/L5 level, there is 2 mm of retrolisthesis of L4 on L5, posterior osteophytic spurring, posterior disc bulge, and superimposed right-sided disc herniation with extruded disc material extending caudally along the right posterior margin of the L5 vertebral body measuring approximately 5 mm in AP dimension. The extruded disc material contributes to impressing upon the right L5 nerve. These findings in combination with degenerative facet changes and ligamentum flavum hypertrophy contributes to moderate narrowing of the thecal sac within the spinal canal. There is moderate encroachment upon the neural foramen bilaterally. At the L3/L4 level, there is 2 mm of retrolisthesis of L3 on L4, a posterior disc bulge, along with degenerative facet changes and mild ligamentum flavum hypertrophy contributing to mild overall narrowing of the thecal sac within the spinal canal. There is fbha-[id number] encroachment upon the neural foramen bilaterally. At the L2/L3 level, there is 2 mm of retrolisthesis of L2 on L3, mild posterior osteophytic spurring, and a posterior disc bulge along with a superimposed left foraminal/far lateral disc herniation. The disc herniation impresses upon the exiting left L2 nerve. There is kepv-hu-wthewlom left-sided neural foraminal narrowing. There is mild narrowing of the thecal sac within the spinal canal. There is mild right-sided neural foraminal narrowing. At the L1/L2 level, there is a minimal posterior disc bulge without significant spinal canal or neural foraminal narrowing. At the T12/L1 level, there is no significant spinal canal or neural foraminal narrowing. At the partially imaged T 11/12 level, there is suggestion of a partially imaged posterior disc and/or disc osteophyte complex encroachment upon the ventral spinal canal. No axial images were obtained through this level. There is a partially imaged approximately 15 mm cystic focus noted along the anterior interpolar region of the left kidney. IMPRESSION: Postoperative changes are identified compatible with a previous discectomy and fusion at the L5/S1 level. There is metallic artifact from interbody fusion device is noted along the disc space at the L5/S1 level. There has been partial resection of the L5 lamina and spinous process. There is 2 mm of retrolisthesis of L4 on L5, L3 on L4, and L2 on L3. The coronal evening sitter images demonstrate a dextrocurvature of the lumbar spine. There are multilevel disc herniations and multilevel spondylosis with varying degrees of spinal canal and neural foraminal narrowing as described above. There is a partially imaged approximately 15 mm cystic focus noted along the anterior interpolar region of the left kidney. The study was interpreted at [facility]. Normal [facility] LUMB SP COMP W FLEX/EXT 6 VW Son 02-08-2021 LUMB SP COMP W FLEX/EXT 6 VWS STUDY: LUMB SP COMP W FLEX/EXT 6 VWS ; 02/08/2021 8:54 am INDICATION: PAIN. COMPARISON: None. ACCESSION NUMBER(S): [id number] ORDERING CLINICIAN: Solomon Gonzales FINDINGS: Metallic interbody graft at L5-S1. Mild to moderate multilevel degenerative disc height loss most pronounced at L3-4. Lower lumbar predominant facet arthropathy. Slight retrolisthesis L3-4 and L4-5. Scattered small endplate osteophytes. No definite pars defects. No instability on flexion or extension. IMPRESSION: Moderate degenerative changes of the lumbar spine without instability. Normal [facility] PROGRESSon 11-17-2020 PROGRESS HNO ID: [id number] Author: Bobby () [place] Service: Radiology Author Type: Carpenter'S Assistant Type: Progress Notes Filed: 11/17/2020 11:47 AM Note Text: Radiology Service Progress Note PATIENT NAME: Noemi Garcia DATE OF SERVICE: November 17, 2020 TIME: 11:46 AM PATIENT IDENTITY VERIFICATION COMPLETED USING TWO (2) IDENTIFIERS: Name and Date of confirmed by patient verbally and Name and Date of confirmed by identification band. FALL SCREENING: Has the patient had 2 falls in the last year or 1 fall with injury or currently using an Ambulatory Assistive Device (Walker, Cane, Wheelchair, Crutches, etc.)? No PATIENT GENDER DATA: Male PATIENT RELEVANT IMPLANT DATA REVIEWED: Not Applicable RADIOLOGY DEPARTMENT: General X-ray: Exam(s) Completed: Lower Extremity X-Ray(s): Knee, AP / Lat / Merchant Left and Wt. Bearing: Upper Extremity X-Ray(s): Shoulder, AP / TRUE AP / AXILLARY right : PERIPHERAL IV DATA: Not applicable SIGNED BY: RT Mavis November 17, 2020 11:46 AM [facility] XR KNEE 3V AP/LAT/MERCHANT L Ton 11-17-2020 XR KNEE 3V AP/LAT/MERCHANT LT * * *Final Report* * * DATE OF EXAM: Nov 17 2020 11:46AM LUX 5208 - XR KNEE 3V AP/LAT/MERCHANT LT / PROCEDURE REASON: Pain * * * * Physician Interpretation * * * * EXAM: XR KNEE 3V AP/LAT/MERCHANT LT HISTORY: Pain, left knee. VIEWS: Bilateral weightbearing AP, left knee merchant and lateral. COMPARISON: 05/01/2019. FINDINGS: No dislocation or acute fracture. Left total knee arthroplasty with patellar resurfacing and no irregular periprosthetic lucency. Reduced left prepatellar edema and smaller joint effusion. Bipartite right patella incidentally. IMPRESSION: Left total knee arthroplasty. Reduced prepatellar edema and smaller joint effusion. Orthotist: YESSENIA Transcribe Date/Time: Nov 17 2020 12:34P Dictated by : Alfredo QUINTANILLA MD This examination was interpreted and the report reviewed and electronically signed by: Alfredo QUINTANILLA MD on Nov 17 2020 12:37PM EST [id number] [facility] XR SHLDR >/=3V AP/KAN AP/OTH R RTon 11-17-2020 XR SHLDR >/=3V AP/KAN AP/OTHR RT * * *Final Report* * * DATE OF EXAM: Nov 17 2020 11:46AM LUX 5253 - XR SHLDR >/=3V AP/KAN AP/OTHR RT / PROCEDURE REASON: Pain * * * * Physician Interpretation * * * * EXAM: XR SHLDR >/=3V AP/KAN AP/OTHR RT HISTORY: Pain, right shoulder. VIEWS: AP, true AP, transscapular, axillary lateral. COMPARISON: No relevant comparison. FINDINGS: No dislocation or acute fracture. Mild hypertrophic spurring at the inferior glenoid and maintained glenohumeral joint space. Normal acromiohumeral interval. Subtle osteophyte at upper distal clavicle. IMPRESSION: Mild glenoid spurring with maintained glenohumeral joint space. No acute bony abnormality. Orthotist: YESSENIA Transcribe Date/Time: Nov 17 2020 12:30P Dictated by : Alfredo QUINTANILLA MD This examination was interpreted and the report reviewed and electronically signed by: Alfredo QUINTANILLA MD on Nov 17 2020 12:34PM EST [id number] [facility] Vital Signs Date Time Vital Sign Value Performing Clinician Gelyi sienna 05-07-2024 15:18-0400 Blood Pressure Location He MOY [facility] 05-07-2024 15:18-0400 Diastolic blood pressure 82 mm[Hg] He MOY [facility] 05-07-2024 15:18-0400 Heart rate 70 /min He MOY [facility] 05-07-2024 15:18-0400 Respiratory rate 16 /min He CHINMAY [facility] 05-07-2024 15:18-0400 Systolic blood pressure 120 mm[Hg] He MOY [facility] 03-14-2024 15:57-0400 Diastolic blood pressure 79 mm[Hg] Pedro Yañez MD Work Phone: [facility] 03-14-2024 15:57-0400 Heart rate 69 /min Pedro Yañez MD Work Phone: [facility] 03-14-2024 15:57-0400 Systolic blood pressure 125 mm[Hg] Pedro Yañez MD Work Phone: [facility] 05-11-2023 13:01-0400 Body temperature 97 [degF] Andre Kramer MD Work Phone: [facility] 05-11-2023 13:01-0400 Body weight 86.64 kg Andre Kramer MD Work Phone: [facility] 05-11-2023 13:01-0400 Diastolic blood pressure 75 mm[Hg] Andre Kramer MD Work Phone: [facility] 05-11-2023 13:01-0400 Heart rate 94 /min Andre Kramer MD Work Phone: [facility] 05-11-2023 13:01-0400 Respiratory rate 16 /min Andre Kramer MD Work Phone: [facility] 05-11-2023 13:01-0400 SaO2% (BldA) [Mass fraction] 95 % Andre Kramer MD Work Phone: [facility] 05-11-2023 13:01-0400 Systolic blood pressure 122 mm[Hg] Andre Kramer MD Work Phone: [facility] 01-08-2023 14:24-0400 Body height 180.3 cm Perdo Yañez MD Work Phone: [facility] 01-08-2023 14:24-0400 Body weight 86.18 kg Pedro Yañez MD Work Phone: [facility] 01-08-2023 14:24-0400 Diastolic blood pressure 88 mm[Hg] Pedro Yañez MD Work Phone: [facility] 01-08-2023 14:24-0400 Heart rate 91 /min Pedro Yañez MD Work Phone: [facility] 01-08-2023 14:24-0400 Systolic blood pressure 123 mm[Hg] Pedro Yañez MD Work Phone: [facility] 12-12-2022 08:22-0400 Heart rate 112 /min [facility] [employer] [facility] [employer] 12-12-2022 08:13-0400 Body height 180.3 cm [facility] [employer] 12-12-2022 08:13-0400 Body mass index (BMI) [Ratio] 26.5 kg/m2 [facility] [employer] 12-12-2022 08:13-0400 Body temperature 99.3 [degF] [facility] [employer] 12-12-2022 08:13-0400 Body weight 86.18 kg [facility] [employer] 12-12-2022 08:13-0400 Diastolic blood pressure 96 mm[Hg] [facility] [employer] 12-12-2022 08:13-0400 Respiratory rate 16 /min [facility] 12-12-2022 08:13-0400 SaO2% (BldA) [Mass fraction] 97 % [facility] [employer] 12-12-2022 08:13-0400 Systolic blood pressure 128 mm[Hg] [facility] [employer] 07-11-2022 13:59-0400 Body height 180.3 cm Pedro Yañez MD Work Phone: [facility] 07-11-2022 13:59-0400 Body weight 84.82 kg Pedro Yañez MD Work Phone: [facility] 07-11-2022 13:59-0400 Diastolic blood pressure 90 mm[Hg] Pedro Yañez MD Work Phone: [facility] 07-11-2022 13:59-0400 Heart rate 65 /min Pedro Yañez MD Work Phone: [facility] 07-11-2022 13:59-0400 Systolic blood pressure 137 mm[Hg] Pedro Yañez MD Work Phone: [facility] Encounters Encounter Date Encounter Type Care Provider Facility Start: 05-07-2024 End: 05-07-2024 ambulatory He MOY Facility:[facility] Start: 05-07-2024 End: 05-07-2024 Patient encounter procedure He MOY [facility] Start: 03-17-2024 ambulatory Pedro Yañez MD Work Phone: Urology Comment on above: Update on the result s of your PSA Start: 03-17-2024 E-mail encounter oswald rogel caregiver Pedro Yañez MD Work Phone: Urology Start: 03-14-2024 End: 03-14-2024 Patient encounter procedure Pedro Yañez MD Work Phone: Urology Comment on above: Screening for genito urinary condition (Primary Dx); Erectile dysfunction due to arterial insufficiency Start: 03-14-2024 End: 03-14-2024 ambulatory MARY Giorgio Rl Facility:[facility] Start: 03-14-2024 End: 03-14-2024 ambulatory [facility] Facility:[facility] Start: 03-13-2024 Orders Only Soraya mullins PA Work Phone: Urology Comment on above: Elevated PSA (Primar y Dx) Start: 05-14-2023 ambulatory Andre Galvan Work Phone: Pulmonary Medicine Comment on above: Pulmonary function t ests Start: 05-14-2023 E-mail encounter fro m caregiver Andre Kramer MD Work Phone: [facility] Start: 05-11-2023 End: 05-11-2023 ambulatory ANDRE KRAMER Pulmonary Medicine Comment on above: Spirometry Start: 05-11-2023 End: 05-11-2023 Subsequent hospital visit by physician Xr Chest Main A21 Radiology Comment on above: Chronic cough [R05.3 ] Start: 05-11-2023 End: 05-11-2023 ambulatory ANDRE KRAMER Facility:[facility] Start: 05-11-2023 End: 05-11-2023 Patient encounter procedure Andre Kramer MD Work Phone: Pulmonary Medicine Comment on above: Chronic cough (Prima ry Dx); Wheezing Start: 05-02-2023 End: 05-02-2023 ambulatory MARY M GARFIELDRl Facility:[facility] Start: 05-01-2023 Orders Only Cedrick chow PA Work Phone: Urology Comment on above: Elevated PSA (Primar y Dx) Start: 01-19-2023 ambulatory Pedro Yañez MD Work Phone: Urology Comment on above: PSA Start: 01-19-2023 E-mail encounter fro m caregiver Pedro Yañez MD Work Phone: [facility] Start: 01-08-2023 End: 01-08-2023 Patient encounter procedure Pedro Yañez MD Work Phone: Urology Comment on above: Elevated PSA (Primar y Dx) Start: 01-08-2023 ambulatory Pedro Yañez MD Work Phone: Urology Start: 12-12-2022 End: 12-12-2022 Emergency department patient visit Physician Margaret Echevarria [facility] Start: 12-12-2022 End: 12-12-2022 Subsequent hospital visit by physician [facility] Comment on above: Gastroenteritis (Serene sailaja Dx) Start: 07-11-2022 End: 07-11-2022 Patient encounter procedure Pedro Yañez MD Work Phone: Urology Comment on above: Screening for genito urinary condition (Primary Dx) Start: 06-06-2022 End: 06-07-[address] MARY MAKI Facility:[facility] Start: 11-08-2021 Encounter for genera l adult medical examination without abnormal findings DR MARY MAKI [facility] Start: 11-07-2021 End: 11-08-[address] MARY MAKI Facility:[facility] Start: 11-07-2021 End: 11-08-2021 Encounter for general adult medical examination without abnormal findings DR MARY MAKI Facility:[facility] Procedures Date Procedure Procedure Detail Performing Clinician Start: 05-11-2023 Nitric oxide gas determination Andre Kramer MD Work Phone: Start: 05-11-2023 Brncdilat rspse spmt ry pre&post-brncdilat admn Andre Kramer MD Work Phone: Start: 05-11-2023 Radiologic exam ches t 2 views Andre Kramer MD Work Phone: Start: 01-08-2023 Urnls dip stick/tabl et rgnt auto w/o microscopy Bulk Order Provider Start: 12-12-2022 SARS-CoV-2 (COVID-19 ) RdRp gene [Presence] in Respiratory specimen by CHICA with probe detection Chp Ed Physician Other Phone: Start: 07-11-2022 Urnls dip stick/tabl et rgnt auto w/o microscopy Pedro Yañez MD Work Phone: Start: 11-07-[address] ZHANNA MAKI Comment on above: Performed By: #### P [facility] #### [facility] [address] [place] [address] Dr. King Cuellar Start: 09-13-2016 Colonoscopy He VINES History of operative procedure on lumbar spinal structure He MOY Repair of joint of l eft knee He MOY Repair of left ingui nal hernia He MOY Repair of right ingu inal hernia He MOY Plan of Treatment Date Care Activity Detail Author Start: 03-14-2029 Prostate specific antigen measurement Prostate Cancer Screening Discussion [facility] Start: 05-02-2028 PROSTATE CANCER SCREENING DISCUSSION PROSTATE CANCER SCREENING DISCUSSION [facility] Start: 05-02-2028 Prostate specific antigen measurement Prostate Cancer Screening Discussion [facility] Start: 11-07-2026 PROSTATE CANCER SCREENING DISCUSSION PROSTATE CANCER SCREENING DISCUSSION [facility] Start: 05-18-2024 Influenza vaccination [facility] Start: 03-14-2024 End: 03-14-2024 Patient encounter procedure 03/14/2024 3:45 PM EDT Office Visit Urology [address] [address] Pedro Yañez MD [address] [place] [address] elevated psa Urology Comment on above: elevated psa Start: 03-13-2024 End: 06-12-2024 Prostate Specific Ag Free [Mass/volume] in Serum or Plasma PROSTATE SPECIFIC ANTIGEN, FREE Lab Routine Elevated PSA Expected: 03/13/2024, Expires: 06/12/2024 [facility] Work Phone: Comment on above: Expected: 03/13/2024 , Expires: 06/12/2024 Start: 09-17-2023 Behavioral Health Screening Behavioral Health Screening [facility] Start: 05-18-2023 Covid-19 Vaccine () Covid-19 Vaccine () [facility] Start: 05-18-2023 Influenza vaccination [facility] Start: 05-02-2023 End: 07-02-2023 Prostate Specific Ag Free [Mass/volume] in Serum or Plasma PSA FREE Lab Routine Elevated PSA Expected: 05/02/2023 (Approximate), Expires: 07/02/2023 [facility] Work Phone: Comment on above: Expected: 05/02/2023 (Approximate), Expires: 07/02/2023 Start: 01-09-2023 End: 03-11-2023 Prostate specific Ag [Mass/volume] in Serum or Plasma PSA/PROSTSPECAG DIAG Lab Routine Screening for genitourinary condition Expected: 01/09/2023, Expires: 03/11/2023 [facility] Work Phone: Comment on above: Expected: 01/09/2023 , Expires: 03/11/2023 Start: 01-09-2023 End: 03-11-2023 Prostate Specific Ag Free [Mass/volume] in Serum or Plasma PSA FREE Lab Routine Screening for genitourinary condition Expected: 01/09/2023, Expires: 03/11/2023 [facility] Work Phone: Comment on above: Expected: 01/09/2023 , Expires: 03/11/2023 Start: 09-17-2022 DEPRESSION ASSESSMENT DEPRESSION ASS ESSMENT [facility] Start: 2022 PROSTATE CANCER SCREENING DISCUSSION PROSTATE CANCER SCREENING DISCUSSION [facility] Start: 05-18-2022 Influenza vaccination INFLUENZA (#1) [facility] Start: 04-17-2022 Influenza vaccination Flu vaccine (# 1) [facility] Start: 03-11-2022 DIABETES SCREEN DIABETES SCREEN [facility] Start: 03-11-2022 Diabetes Screening Diabetes Screenin g [facility] Start: 10-11-2021 COVID-19 VACCINE (4 - Booster for Moderna series) COVID-19 VACCINE (4 - Booster for Moderna series) [facility] Start: 10-11-2021 COVID-19 VACCINE (4 - Moderna series) COVID-19 VACCINE (4 - Moderna series) [facility] Start: 09-17-2021 DEPRESSION ASSESSMENT DEPRESSION ASS ESSMENT [facility] Start: 2017 SHINGRIX VACCINE (1 of 2) SHINGRIX VACCINE (1 of 2) [facility] Start: 2012 COLOGUARD (FIT-DNA) COLOGUARD (FIT-D NA) [facility] Start: 2012 Colonoscopy COLONOSCOPY [facility] Start: 2012 COLORECTAL CANCER SCREENING COLORECTAL CANCER SCREENING [facility] Start: [address] COLONOGRAPHY [facility] Start: 2012 FECAL OCCULT BLOOD FECAL OCCULT BLOO D [facility] Start: 2012 Screening for malign ant neoplasm of colon [facility] Start: 2012 SIGMOIDOSCOPY SIGMOIDOSCOPY [facility] Start: 2002 Lipid 1996 panel - S anatoly or Plasma Lipid Screening [facility] Start: 2002 Lipid panel Lipid Screening [facility] Start: 2002 LIPID SCREEN LIPID SCREEN [facility] Start: 1986 DTaP/Tdap/Td vaccine (1 - Tdap) DTaP/Tdap/Td vaccine (1 - Tdap) [facility] Start: 1986 Hepatitis B Vaccine (1 of 3 - 19+ 3-dose series) Hepatitis B Vaccine (1 of 3 - 19+ 3-dose series) [facility] Start: 1986 Urine microalbumin profile [facility] Start: 1985 HEPATITIS C SCREENING HEPATITIS C [facility] Start: 1985 Hepatitis C screening Hepatitis C [facility] Start: 1985 HIV SCREENING HIV SCREENING [facility] Start: 1985 HIV screening HIV Screening [facility] Start: 1967 COVID-19 Vaccine (#1) COVID-19 Vacci ne (#1) [facility] Start: 1967 HEPATITIS B (1 of 3 - 3-dose series) HEPATITIS B (1 of 3 - 3-dose series) [facility] Start: 1967 Hepatitis B Vaccine (1 of 3 - 3-dose series) Hepatitis B Vaccine (1 of 3 - 3-dose series) [facility] End: 04-16-2025 MR Prostate WO and W contrast IV MRI PROSTATE WO/W IVCON Radiology Routine Elevated PSA Encounter for observation for other suspected diseases and conditions ruled out 1 Occurrences starting 03/17/2024 until 04/16/2025 [facility] Work Phone: Comment on above: 1 Occurrences starti ng 03/17/2024 until 04/16/2025 End: 04-16-2025 MR Unspecified body region 3D post processing MRI 3D POST PROCESSING Radiology Routine Elevated PSA Encounter for observation for other suspected diseases and conditions ruled out 1 Occurrences starting 03/17/2024 until 04/16/2025 [facility] Comment on above: 1 Occurrences starti ng 03/17/2024 until 04/16/2025 SPIROMETRY - BASELIN E AND POST DILATOR SPIROMETRY - BASELINE AND POST DILATOR PFT Routine Chronic cough Wheezing 05/11/2023 2:51 PM EDT [facility]: [facility] Immunizations Immunization Date Immunization Notes Care Provider Fa [facility] 08-16-2021 influenza virus vaccine, unspecified formulation Andre Kramer MD Work Phone: [facility] 08-16-2021 SARS-CoV-2 (COVID-19 ) mRNA-1273 vaccine He MO[facility] Comment on above: Result Comment: 2023: [id number] 01-12-2021 SARS-CoV-2 (COVID-19 ) mRNA-1273 vaccine He MOY [facility] 12-15-2020 SARS-CoV-2 (COVID-19 ) mRNA-1273 vaccine He MOY [facility] 10-14-2019 Influenza, injectabl e, Madin Laurie Canine Kidney, preservative free, quadrivalent Andre Kramer MD Work Phone: [facility] Payers Date Payer Category Payer Unknown [id number] 2011 Unknown [id number] 1967 Unknown [id number] 1967 Unknown [id number] 1967 Unknown [id number] 1967 Unknown [id number] 1959 Unknown [id number] Social History Date Type Detail Facility Start: 07-11-2022 End: 05-07-2024 Tobacco smoking status NHIS Never smoked tobacco [facility] Start: 07-11-2022 Tobacco use and exposure Smokeless tobacco non-user [facility] Start: 07-11-2022 End: 03-14-2024 Alcohol intake Current drinker of alcohol (finding) [facility] Start: 02-27-2019 Alcohol Comment [facility] Start: 1965 Sex Assigned At Not on file [facility] Start: 07-01-2022 End: 12-12-2022 Exposure to SARS-CoV-2 (event) Not sure [facility] Work Phone: Tobacco smoking status NHIS Tobacco smoking consumption unknown [facility] Work Phone: Start: 01-08-2023 End: 06-01-2023 History of Social function [facility] Start: 01-08-2023 End: 06-01-2023 Tobacco use panel [facility] PHQ2 Score 0 [facility] Start: 05-11-2023 Alcohol Comment Social - 1-2 b eers a month [facility] Medical Equipment Procedure Code Equipment Code Equipment Origin al Text Equipment Identifier Dates Reginon Cr Tibi al Bearing Insert X3 9mm Size [id number] Start: 03-10-2019 Component Triath mia 6 Pa Femoral Cruciate Retain Bead Knee Left - [id number] Start: 03-10-2019 Mesh Marlex Flat Polypropylene 6x6in Surgical Tailored Hernia Sterile Groin - [id number] Start: 09-05-2017 Baseplate Triath mia 6 Tritanium 41r11bs Tibial 4 Cruciform Peg Keel Knee - [id number] Start: 03-10-2019 Component Tritan ium 36mm Metal 10mm Patellar Symmetric Knee - [id number] Start: 03-10-2019 Mesh Marlex Flat Polypropylene 6x6in Surgical Tailored Hernia Sterile Groin - [id number] Start: 09-05-2017 Functional Status Date Assessment Result Facility 05-07-2024 Functional Status N/A [facility] General Surgery [place] Clinical Notes 07-11-2022 to 05-07-2024 Pedro Yañez MD - 03/14/2024 3:45 PM EDTTelephone Encounter - Andre Kramer MD - 2023 10:45 AM Bogdan Cortez [facility] - 05/11/2023 3:27 PM Bogdan Cortez [facility] - 05/11/2023 3:10 PM EDT Note Date & Type Note Facility 05-07-2024 Note General Surgery Offi ce/Clinic Note Chief Complaint consultation for positive occult stool HPI Staff 58 year old male presents on consultation from Dr. Maki for positive occult stool. Denies abdominal or rectal pain. No rectal bleeding or change in bowel habits. Denies nausea or vomiting. No unexplained weight loss. Last colonoscopy completed 08/2016 with diverticulosis. No known family history of colon cancer. History of Present Illness 58 yo male with h/o asthma, GERD, referred for positive fecal occult blood; denies change in bms or gross blood in stools; no abd complaints; last colonoscopy 08/2016 with moderate sigmoid diverticulosis; abdominal operations significant for bilateral inguinal hernia repairs; no asa or NSAID use; no tobacco use; no fmhx of GI malignancy or IBD. Review of Systems PHQ Score Initial Depression Screen Score: 0 SCORE ROS - Provider Constitutional: no fever, no sweats, no weight loss. Eyes: yes glasses, no blurred vision, no visual loss. ENMT: no dentures, no hoarseness, no swallowing difficulties, no hearing loss, no ear infection(s), no nose bleeds. Cardiovascular: normal blood pressure, no chest pain, regular heartbeat, no heart murmur. Respiratory: no shortness of breath, no cough, no asthma, no wheezing. Gastrointestinal: no nausea, no vomiting, no diarrhea, no constipation, no blood in stool, no change in bowel habits, no abdominal pain, no hepatitis. Genitourinary: no kidney stones, no urine infection, no dysuria. Musculoskeletal: no pain, no weakness. Skin: no changing moles, no rash, no skin lumps. Neurologic: no seizures, no epilepsy, no headache. Psychiatric: no emotional or psychiatric problem. Heme/Lymph: no bleeding problems, no anemia, no blood clots, no transfusions. Allergy/Immunologic: no swollen lymph nodes/glands, no IV drug abuse. Other: Additional ROS info: Except as noted in the above Review of Systems and in the History of Present Illness, all other systems have been reviewed and are negative or noncontributory. Physical Exam Vitals & Measurements HR: 70(Peripheral) RR: 16 BP: 120/82 HT: 71 in HT: 180.34 cm WT: 89 kg WT: 195.8 lb BMI: 27.37 HEENT: normal conjunctiva, sclera clear, no scleral icterus, EOM intact, PERRLA, oral mucosa moist without lesions. Neck: trachea midline, no mass, symmetric, no thyromegaly or nodules, no adenopathy Respiratory: lungs CTA, respirations non labored. Cardiovascular: regular rate and rhythm, no murmur, no pedal edema or varicosities. Gastrointestinal: soft, non distended, no tenderness, no masses, no palpable hernias, diastasis recti no, no hepatosplenomegaly; normal bs Lymphatic: no cervical adenopathy, no supraclavicular adenopathy. Musculoskeletal: normal gait, digits and nails without infection, nodes, cyanosis, clubbing. Skin: no rashes, no lesions, no ulcers, no subcutaneous nodules, induration. Psychiatric/Neuro: oriented to time, place, person, judgement normal, affect appropriate for age, insight intact, no focal deficits. Tests: labs reviewed, review of old records completed , Discussed surgical options, risks, and possible complications with patient. Assessment/Plan 1. Positive occult stool blood test (R19.5: Other fecal abnormalities) plan colonoscopy under anesthesia, informed consent obtained. Follow-up No qualifying data available Problem List/Past Medical History Ongoing Anxiety Asthma Attention and concentration deficit BMI 27.0-27.9,adult DDD (degenerative disc disease), cervical Erectile dysfunction GERD (gastroesophageal reflux disease) Overweight Positive occult stool blood test Sciatica Sigmoid diverticulosis Historical No qualifying data Procedure/Surgical History Colonoscopy (09/13/2016), Arthroplasty of left knee, History of lumbar spine surgery, Repair of left inguinal hernia, Repair of right inguinal hernia. Medications Cialis 5 mg oral tablet, 5 mg= 1 tab(s), Oral, Daily, PRN Allergies No Known Allergies No Known Medication Allergies Social History Alcohol - Denies Alcohol Use, 05/07/2024 Substance Abuse - Denies Substance Abuse, 05/07/2024 Tobacco Never (less than 100 in lifetime) Tobacco Use:. Never Smokeless Tobacco Use:., 05/07/2024 Family History Family history is negative Immunizations Vaccine Date Status Comments SARS-CoV-2 (COVID-19) mRNA-1273 vaccine 08/16/2021 Recorded 2024-04-03: [id number] SARS-CoV-2 (COVID-19) mRNA-1273 vaccine 01/12/2021 Recorded SARS-CoV-2 (COVID-19) mRNA-1273 vaccine 12/15/2020 Recorded [facility] Comment on above: Result Comment: Elec tronically Signed By: CHINMAY GOMES, He Franks\Date and Time Signed: 05/07/24 20:19 EDT 03-14-2024 History of Presen t illness Narrative PATIENT: Noemi Garcia [id number] 03/14/2024 Chief Complaint: Follow up elevated PSA History of Present Illness: This clinic note was copied and updated from previous note from 01/08/2023 Noemi Garcia is a very pleasant 58 year old male who presents with a history of OA, knee replacement, diverticulosis, GERD, elevated PSA . Follow up today with PSA free and total Patient is presenting for follow up PSA pending as of today Occasional hesitancy Occasional nocturia AUA score: 5 (mild), Qol0 JOSEFINA score: 22, no ED No family hx of prostate cancer., No hematuria, No dysuria, No kidney stones. Past Histories PAST MEDICAL HISTORY PAST MEDICAL HISTORY Diagnosis Date NONE PAST SURGICAL HISTORY PAST SURGICAL HISTORY Procedure Laterality Date COLONOSCOPY HERNIA REPAIR HX Bilateral PAST SURGICAL HISTORY OF lumbar disc surgery Medications Current Outpatient Medications Medication Instructions Amoxicillin 500 mg tablet Take four capsules 1 hour prior to dental procedure and two capsule 6 hours later aspirin, enteric coated (ECOTRIN LOW STRENGTH) 81 mg, ORAL, 2 TIMES DAILY cyclobenzaprine (FLEXERIL) 10 mg tablet TAKE 1 TABLET BY MOUTH TWICE A DAY NEEDED *DO NOT OPERATE A VEHICLE WHILE TAKING THIS [id number]* diclofenac (EC) (VOLTAREN) 75 mg, ORAL, 2 TIMES DAILY diclofenac (EC) (VOLTAREN) 75 mg, ORAL, [address] (PROTONIX) 20 mg, ORAL, DAILY Family History FAMILY HISTORY FAMILY HISTORY Problem Relation Age of Onset Coronary Artery Disease Paternal Grandfather Social History SOCIAL HISTORY Social History Tobacco Use Smoking status: Never Smokeless tobacco: Never Substance Use Topics Alcohol use: Yes Comment: Social Drug use: No Allergies Allergies: No Known Allergies Physical Exam: There were no vitals taken for this visit. General: Alert, no acute distress, oriented Lungs: No respiratory distress or pursed lip breathing Psych: Affect and mood normal Abdomen: Estimated body mass index is 26.64 kg/m as calculated from the following: Height as of 01/08/23: 180.3 cm (5' 11 ). Weight as of 05/11/23: 86.6 kg (191 lb). Labs and Pathology: PSA (ng/mL) Date Value 05/02/2023 3.22 Creatinine (mg/dL) Date Value 03/11/2019 0.80 02/27/2019 0.95 08/31/2017 0.91 Diagnosis: (Z13.89) Screening for genitourinary condition (primary encounter diagnosis) (N52.01) Erectile dysfunction due to arterial insufficiency Assessment: Noemi Garcia is a very pleasant 58 year old male who presents with a history of OA, knee replacement, diverticulosis, GERD, elevated PSA . Follow up today with PSA free and total Patient sent by family doctor for elevated PSA. I don't have his recent PSA results at this time. He took the PSA test today results are currently in process. TREY today demonstrated prostate 1+, non tender and no suspicion of prostate cancer. We both agree to wait and review the test results. If results are high, I will request a MRI. If the results come back normal, we will continue with periodical assessment. I will call the patient with the PSA result. There is evidence that an MRI prior to initial biopsy increases the diagnostic yield of a standard TRUS guided biopsy, specifically for clinically significant prostate cancer ([place] > 7 or more). Also it does not detect low volume [place] 6 prostate cancer which often don't need to be diagnosed or treated. That strategy has been shown to reduce unnecessary biopsy by up to 25%. The MRI would also provide staging and surgical planning information should treatment be required. References: Pedro Luis et al., Diagnostic accuracy of MRI and TRUS biopsy in prostate cancer (PROMIS): a paired valiating confirmatory study. Lancet 25;389:[id number]. Linda et al. MRI-targeted or standard biopsy for prostate-cancer diagnosis. [facility] 378;19:[id number]. Plan: Will call with PSA result Scribe Attestation: By signing my name below, I,Altagracia Alvarez, attest that this documentation has been prepared under the direction and in the presence of Pedro Lloyd MD. Electronically Signed: Joanne Mccoy. March 14, 2024 4:24 PM. Provider Attestation: I, personally performed the services described in this documentation. All medical record entries made by the scribe were at my direction and in my presence. I have reviewed the chart and discharge instructions (if applicable) and agree that the record reflects my personal performance and is accurate and complete. Electronically Signed: Pedro Yañez MD [facility] [place] [facility] Medical Decision Making: Problems: Moderate: New problem with uncertain prognosis Data: Unique test result(s) reviewed: 1 Unique test(s) ordered: 1 Risk: Moderate: Moderate risk from testing/treatment Medical Decision Making Level: 4 - Moderate documented in this encounter [facility] 03-14-2024 Note HNO ID: [id number] Author: PEDRO YAÑEZ MD Service: ? Author Type: Physician Type: Progress Notes Filed: 03/17/2024 09:19 Note Text: PATIENT: Noemi Garcia [id number] 03/14/2024 Chief Complaint: Follow up elevated PSA History of Present Illness: This clinic note was copied and updated from previous note from 01/08/2023 Noemi Garcia is a very pleasant 58 year old male who presents with a history of OA, knee replacement, diverticulosis, GERD, elevated PSA . Follow up today with PSA free and total Patient is presenting for follow up PSA pending as of today Occasional hesitancy Occasional nocturia AUA score: 5 (mild), Qol0 JOSEFINA score: 22, no ED No family hx of prostate cancer., No hematuria, No dysuria, No kidney stones. Past Histories PAST MEDICAL HISTORY PAST MEDICAL HISTORY Diagnosis Date NONE PAST SURGICAL HISTORY PAST SURGICAL HISTORY Procedure Laterality Date COLONOSCOPY HERNIA REPAIR HX Bilateral PAST SURGICAL HISTORY OF lumbar disc surgery Medications Current Outpatient Medications Medication Instructions Amoxicillin 500 mg tablet Take four capsules 1 hour prior to dental procedure and two capsule 6 hours later aspirin, enteric coated (ECOTRIN LOW STRENGTH) 81 mg, ORAL, 2 TIMES DAILY cyclobenzaprine (FLEXERIL) 10 mg tablet TAKE 1 TABLET BY MOUTH TWICE A DAY NEEDED *DO NOT OPERATE A VEHICLE WHILE TAKING THIS [id number]* diclofenac (EC) (VOLTAREN) 75 mg, ORAL, 2 TIMES DAILY diclofenac (EC) (VOLTAREN) 75 mg, ORAL, [address] (PROTONIX) 20 mg, ORAL, DAILY Family History FAMILY HISTORY FAMILY HISTORY Problem Relation Age of Onset Coronary Artery Disease Paternal Grandfather Social History SOCIAL HISTORY Social History Tobacco Use Smoking status: Never Smokeless tobacco: Never Substance Use Topics Alcohol use: Yes Comment: Social Drug use: No Allergies Allergies: No Known Allergies Physical Exam: There were no vitals taken for this visit. General: Alert, no acute distress, oriented Lungs: No respiratory distress or pursed lip breathing Psych: Affect and mood normal Abdomen: Estimated body mass index is 26.64 kg/m? as calculated from the following: Height as of 01/08/23: 180.3 cm (5' 11 ). Weight as of 05/11/23: 86.6 kg (191 lb). Labs and Pathology: PSA (ng/mL) Date Value 05/02/2023 3.22 Creatinine (mg/dL) Date Value 03/11/2019 0.80 02/27/2019 0.95 08/31/2017 0.91 Diagnosis: (Z13.89) Screening for genitourinary condition (primary encounter diagnosis) (N52.01) Erectile dysfunction due to arterial insufficiency Assessment: Noemi Garcia is a very pleasant 58 year old male who presents with a history of OA, knee replacement, diverticulosis, GERD, elevated PSA . Follow up today with PSA free and total Patient sent by family doctor for elevated PSA. I don't have his recent PSA results at this time. He took the PSA test today results are currently in process. TREY today demonstrated prostate 1+, non tender and no suspicion of prostate cancer. We both agree to wait and review the test results. If results are high, I will request a MRI. If the results come back normal, we will continue with periodical assessment. I will call the patient with the PSA result. There is evidence that an MRI prior to initial biopsy increases the diagnostic yield of a standard TRUS guided biopsy, specifically for clinically significant prostate cancer (Ade > 7 or more). Also it does not detect low volume [place] 6 prostate cancer which often don't need to be diagnosed or treated. That strategy has been shown to reduce unnecessary biopsy by up to 25%. The MRI would also provide staging and surgical planning information should treatment be required. References: Pedro Luis et al., Diagnostic accuracy of MRI and TRUS biopsy in prostate cancer (PROMIS): a paired valiating confirmatory study. Lancet 25;389:[id number]. Linda beltrán al. MRI-targeted or standard biopsy for prostate-cancer diagnosis. [facility] 378;19:[id number]. Plan: Will call with PSA result Scribe Attestation: By signing my name below, I,Altagracia Alvarez, attest that this documentation has been prepared under the direction and in the presence of Pedro Lloyd MD. Electronically Signed: Joanne cMcoy. March 14, 2024 4:24 PM. Provider Attestation: I, personally performed the services described in this documentation. All medical record entries made by the scribe were at my direction and in my presence. I have reviewed the chart and discharge instructions (if applicable) and agree that the record reflects my personal performance and is accurate and complete. Electronically Signed: Pedro Yañez MD [facility] [place] [facility] [place] Medical Decision Making: Problems: Moderate: New problem with uncertain prognosis Data: Unique te (more content not included)... [facility] 03-14-2024 Note Patient Outreach (UR OLMN) NOEMI GARCIA ([id number]) 1965 M Date Time Provider Department 03/14/24 PEDRO YAÑEZ During your visit today, we recorded the following information about you: Allergies As of Date: 03/14/2024 (No Known Allergies) Date Reviewed: 03/14/2024 Reviewed by: Vanessa Jameson [facility] - Fully Assessed Visit Diagnosis:Screening for genitourinary condition [Z13.89] Order(s):URINALYSIS, REFLEX MICROSCOPIC [[id number]] Order #: [id number]. #:[id number] Prescriptions as of 03/17/2024 - Tadalafil (CIALIS) 10 mg tablet Take 1 tablet by mouth once daily as needed for up to 20 doses. Take 1-2 hours before sexual activity. - SYMBICORT 80-4.5 mcg/actuation inhaler INHALE 2 PUFFS INSTRUCTED TWICE DAILY. - omeprazole (PRILOSEC) 40 mg capsule Take 1 capsule by mouth once daily. Problem List As Of Date 03/14/2024 Noted Resolved Primary osteoarthritis of left knee [M17.12] 09/28/2016 Non-recurrent bilateral inguinal hernia without*08/17/2017 Diverticulosis of large intestine without perfo*09/04/2017 GERD without esophagitis [K21.9] 09/04/2017 Arthritis of knee, left [M17.12] 06/25/2018 OA (osteoarthritis) of knee [M17.9] 03/10/2019 Status post total knee replacement, left [Z96.6*03/31/2019 Encounter Status:Closed by MARTA BARRERA on 03/17/24 [facility] 2023 Miscellaneous Notes Ordering Symbicort as a therapeutic trial for his cough in the event his cough is driven by asthma. She is doing Symbicort over Advair given insurance guidance on ordering system. documented in this encounter [facility] 05-11-2023 Note HNO ID: [id number] Author: Bogdan Martinez Tech Service: ? Author Type: Carpenter'S Assistant Type: Progress Notes Filed: 05/11/2023 3:29 PM Note Text: PULM FUNCTION SMARTBLOCK: Provider: Andre Kramer MD Spirometry w/BD: 1 Exhaled Nitric Oxide: 1 A11 Lab-1 [facility] 05-11-2023 History of Presen t illness Narrative PULM FUNCTION SMARTBLOCK: Provider: Andre Kramer MD Spirometry w/BD: 1 Exhaled Nitric Oxide: 1 A11 Lab-1 documented in this encounter [facility] 05-11-2023 Note HNO ID: [id number] Author: Bogdan Martinez Tech Service: ? Author Type: Carpenter'S Assistant Type: Procedures Filed: 05/11/2023 3:11 PM Note Text: RESPIRATORY THERAPY ORAL EXHALED NITRIC OXIDE SERVICE DATE: 05/11/2023 SERVICE TIME: 3:11 PM Oral Exhaled Nitric Oxide measurement: 12.0 (ppb) Normal: Adult 5-20 ppb, pediatric (<12 years) 5-15 ppb High Normal / Increased: Adult 20-35 ppb, pediatric (<12 years) 15-25 ppb Moderately raised exhaled Nitric Oxide may indicate underlying inflammation, but note that: Cold and influenza can raise exhaled Nitric Oxide and some patients have higher baseline exhaled Nitric Oxide levels than others. High: Adult >35 ppb, pediatric (<12 years) >25 ppb Indicative of ongoing eosinophilic inflammation. Symptomatic patient likely to respond to steroids. Possible causes (if already on steroids): Poor compliance, recent allergen exposure, steroid dose inadequate, and steroid resistance. Note that not all patients with high exhaled nitric oxide levels display symptoms. Oral Exhaled Nitric Oxide measurement (Previous Encounters) Test Date Oral Exhaled Nitric Oxide (ppb) 05/11/2023 12.0 NAME: Soren Seay PATIENT NAME: Noemi Garcia DATE: May 11, 2023 TIME: 3:11 PM [facility] 05-11-2023 Procedure note Associated Ord er(s): NITRIC OXIDE, EXHALED RESPIRATORY THERAPY ORAL EXHALED NITRIC OXIDE SERVICE DATE: 05/11/2023 SERVICE TIME: 3:11 PM Oral Exhaled Nitric Oxide measurement: 12.0 (ppb) Normal: Adult 5-20 ppb, pediatric (<12 years) 5-15 ppb High Normal / Increased: Adult 20-35 ppb, pediatric (<12 years) 15-25 ppb Moderately raised exhaled Nitric Oxide may indicate underlying inflammation, but note that: Cold and influenza can raise exhaled Nitric Oxide and some patients have higher baseline exhaled Nitric Oxide levels than others. High: Adult >35 ppb, pediatric (<12 years) >25 ppb Indicative of ongoing eosinophilic inflammation. Symptomatic patient likely to respond to steroids. Possible causes (if already on steroids): Poor compliance, recent allergen exposure, steroid dose inadequate, and steroid resistance. Note that not all patients with high exhaled nitric oxide levels display symptoms. Oral Exhaled Nitric Oxide measurement (Previous Encounters) Test Date Oral Exhaled Nitric Oxide (ppb) 05/11/2023 12.0 NAME: Soren Seay PATIENT NAME: Noemi Garcia DATE: May 11, 2023 TIME: 3:11 PM documented in this encounter [facility] 05-11-2023 History of Presen t illness Narrative Radiology Service Progress Note PATIENT NAME: Noemi Garcia DATE OF SERVICE: May 11, 2023 TIME: 2:24 PM PATIENT IDENTITY VERIFICATION COMPLETED USING TWO (2) IDENTIFIERS: Name and Date of confirmed by patient verbally. FALL SCREENING: Has the patient had 2 falls in the last year or 1 fall with injury or currently using an Ambulatory Assistive Device (Walker, Cane, Wheelchair, Crutches, etc.)? No PATIENT GENDER DATA: Male PATIENT RELEVANT IMPLANT DATA REVIEWED: Not Applicable RADIOLOGY DEPARTMENT: General X-ray: Exam(s) Completed: Chest X-Ray PERIPHERAL IV DATA: Not applicable SIGNED BY: RT Winston(R) May 11, 2023 2:24 PM documented in this encounter [facility] 05-11-2023 Note HNO ID: [id number] Author: Naldo Aguilar RT(R) Service: Radiology Author Type: Technologist Type: Progress Notes Filed: 05/11/2023 2:24 PM Note Text: Radiology Service Progress Note PATIENT NAME: Noemi Garcia DATE OF SERVICE: May 11, 2023 TIME: 2:24 PM PATIENT IDENTITY VERIFICATION COMPLETED USING TWO (2) IDENTIFIERS: Name and Date of confirmed by patient verbally. FALL SCREENING: Has the patient had 2 falls in the last year or 1 fall with injury or currently using an Ambulatory Assistive Device (Walker, Cane, Wheelchair, Crutches, etc.)? No PATIENT GENDER DATA: Male PATIENT RELEVANT IMPLANT DATA REVIEWED: Not Applicable RADIOLOGY DEPARTMENT: General X-ray: Exam(s) Completed: Chest X-Ray PERIPHERAL IV DATA: Not applicable SIGNED BY: RT Winston(R) May 11, 2023 2:24 PM [facility] 05-11-2023 Instructions Andre Kramer MD - 05/11/2023 1:48 PM EDT Your evaluated today at the [facility] pulmonary medicine clinic for your cough. Your cough is a chronic office has been going on for the past 3 years. I am suspicious that your cough may be from underlying asthma given that you have had improvement in your cough previously with Advair which is a treatment for asthma. Other possible etiologies of your cough include acid reflux leading to vocal cord irritation. When you lay down at night you may be having reflux contributing to vocal cord irritation so I recommend you sleep with the head of the bed elevated around 30 degrees. We should also start an acid reducing medication called omeprazole. To evaluate for asthma I have ordered some lung function test including the exhaled nitric oxide test that we discussed. I also ordered a chest x-ray I like to see you back in approximately 3 months documented in this encounter [facility] 05-11-2023 Note HNO ID: [id number] Author: Andre Kramer MD Service: ? Author Type: Physician Type: Progress Notes Filed: 05/11/2023 1:56 PM Note Text: [facility] [place] [facility] Pulmonary Consultation CC: wheezing, cough Noemi Garcia is a 57 year old male self-referred for evaluation of cough. Assessment and Plan (R05.3) Chronic cough (primary encounter diagnosis) (R06.2) Wheezing Comment: I am suspicious that his cough may be from underlying asthma given prior spirometry showing mild obstruction and prior clinical response to Advair and/or related to GERD leading to laryngeal pharyngeal reflux given that his cough is worse in the morning and his sleep partner reports nocturnal wheezing. He currently has no GERD alarm symptoms such as dysphagia or weight loss. Plan: Obtain NITRIC OXIDE, EXHALED, SPIROMETRY - BASELINE AND POST DILATOR To evaluate for underlying asthma XR CHEST 2V FRONTAL/LAT CONSULT TO ENT for evaluation of vocal cord function (?ILO related to LPR) Start omeprazole (PRILOSEC) 40 mg capsule daily Start to sleep with the head of bed elevated 30 degrees Return to clinic in 3 months This note was partially created using voice recognition software and is inherently subject to errors including those of syntax and sound-alike substitutions which may escape proofreading. In such instances, original meaning may be extrapolated by contextual derivation. Please contact my office with questions or concerns. I spent a total of 54 minutes on the date of the service which included preparing to see the patient, [id number] patient care, completing clinical documentation, obtaining and/or reviewing separately obtained history, performing a medically appropriate examination, counseling and educating the patient/family/caregiver, ordering medications, tests, or procedures, independently interpreting results (not separately reported), and communicating results to the patient/family/caregiver Andre Kramer MD Staff, Pulmonary AND Critical Care Medicine Staff, [facility] ([facility]) [facility] [place] [facility] HPI: Mr Garcia is a 57 year-old never smoker who presented today for evaluation of wheezing and the sensation of something in his lungs associated with a cough. He was previously seen by pulmonary medicine in 2003/[address] Del Toro and underwent bronchoscopy for evaluation of cough. Per Dr. Del Toro's notes he was having a hacking spasmodic cough. some black particles in the phlegm. 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 Bronchoscopy was done and reported as normal and he was started on Advair, which he used for a few years. This did help his cough. 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 He states that he is exposed to some fumes at times. His currently cough came about the past 3-4 years. His cough is day and night. Cough is mostly dry, but he has recent worsening of his cough after URI and coughed up some phlegm. He feels like there is an occasional tickle in his throat. Cough is not related to position or food, but he does note that his cough is worse in the morning. He cough isn't necessarily related to work. He also has voice hoarseness. His girlfriend states she hears him wheezing at night. He denies PND. He has no dysphagia or traditional GERD symptoms. No aspiration event outside of shredded pork/beef when he eats it too fast. He recently renovated a home with girlfriends brother. There was concern for mold exposure that made his cough worse for awhile. He has no dyspnea, but has not been routinely exercising in the past 6 months. He had gained 10 lbs in the past 6 months. No LE edema, orthopnea. No Chest pain. No new rashes. PAST MEDICAL HISTORY Diagnosis Date NONE PAST SURGICAL HISTORY Procedure Laterality Date COLONOSCOPY HERNIA REPAIR HX Bilateral PAST SURGICAL HISTORY OF lumbar disc surgery FAMILY HISTORY Problem Relation Age of Onset Coronary Artery Disease Paternal Grandfather Social History Tobacco Use Smoking status: Never Smokeless tobacco: Never Substance Use Topics Alcohol use: Yes Comment: Social Drug use: No Current Outpatient Medications Medication Sig Dispense Refill diclofenac, EC, (VOLTAREN) 75 mg EC tablet Take 1 tablet by mouth twice daily. (Patient not taking: Reported on 05/11/2023) 60 tablet 0 cyclobenzaprine (FLEXERIL) 10 mg tablet TAKE 1 TABLET BY MOUTH TWICE A DAY NEEDED *DO NOT OPERATE A VEHICLE WHILE TAKING THIS [id number]* (Patient not taking: Reported on 11/17/2020) 30 tablet 0 Amoxicillin 500 mg tablet Take four capsules 1 hour prior to dental procedure and two capsule 6 hours later (Patient not taking: Reported on 01/08/2023) 12 tablet 0 diclofenac, EC, (VOLTAREN) 75 mg EC tablet Take 1 tablet by mouth twice (more content not included)... [facility] 05-11-2023 History of Presen t illness Narrative Images from the original note were not included. [facility] [place] [facility] Pulmonary Consultation CC: wheezing, cough Noemi Garcia is a 57 year old male self-referred for evaluation of cough. Assessment and Plan (R05.3) Chronic cough (primary encounter diagnosis) (R06.2) Wheezing Comment: I am suspicious that his cough may be from underlying asthma given prior spirometry showing mild obstruction and prior clinical response to Advair and/or related to GERD leading to laryngeal pharyngeal reflux given that his cough is worse in the morning and his sleep partner reports nocturnal wheezing. He currently has no GERD alarm symptoms such as dysphagia or weight loss. Plan: Obtain NITRIC OXIDE, EXHALED, SPIROMETRY - BASELINE AND POST DILATOR To evaluate for underlying asthma XR CHEST 2V FRONTAL/LAT CONSULT TO ENT for evaluation of vocal cord function (?ILO related to LPR) Start omeprazole (PRILOSEC) 40 mg capsule daily Start to sleep with the head of bed elevated 30 degrees Return to clinic in 3 months This note was partially created using voice recognition software and is inherently subject to errors including those of syntax and sound-alike substitutions which may escape proofreading. In such instances, original meaning may be extrapolated by contextual derivation. Please contact my office with questions or concerns. I spent a total of 54 minutes on the date of the service which included preparing to see the patient, [id number] patient care, completing clinical documentation, obtaining and/or reviewing separately obtained history, performing a medically appropriate examination, counseling and educating the patient/family/caregiver, ordering medications, tests, or procedures, independently interpreting results (not separately reported), and communicating results to the patient/family/caregiver Andre Kramer MD Staff, Pulmonary & Critical Care Medicine Staff, [facility] ([facility]) [facility] [place] [facility] HPI: Mr Garcia is a 57 year-old never smoker who presented today for evaluation of wheezing and the sensation of something in his lungs associated with a cough. He was previously seen by pulmonary medicine in with Dr. Del Toro and underwent bronchoscopy for evaluation of cough. Per Dr. Del Toro's notes he was having a hacking spasmodic cough. some black particles in the phlegm. 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 Bronchoscopy was done and reported as normal and he was started on Advair, which he used for a few years. This did help his cough. 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 He states that he is exposed to some fumes at times. His currently cough came about the past 3-4 years. His cough is day and night. Cough is mostly dry, but he has recent worsening of his cough after URI and coughed up some phlegm. He feels like there is an occasional tickle in his throat. Cough is not related to position or food, but he does note that his cough is worse in the morning. He cough isn't necessarily related to work. He also has voice hoarseness. His girlfriend states she hears him wheezing at night. He denies PND. He has no dysphagia or traditional GERD symptoms. No aspiration event outside of shredded pork/beef when he eats it too fast. He recently renovated a home with girlfriends brother. There was concern for mold exposure that made his cough worse for awhile. He has no dyspnea, but has not been routinely exercising in the past 6 months. He had gained 10 lbs in the past 6 months. No LE edema, orthopnea. No Chest pain. No new rashes. PAST MEDICAL HISTORY Diagnosis Date NONE PAST SURGICAL HISTORY Procedure Laterality Date COLONOSCOPY HERNIA REPAIR HX Bilateral PAST SURGICAL HISTORY OF lumbar disc surgery FAMILY HISTORY Problem Relation Age of Onset Coronary Artery Disease Paternal Grandfather Social History Tobacco Use Smoking status: Never Smokeless tobacco: Never Substance Use Topics Alcohol use: Yes Comment: Social Drug use: No Current Outpatient Medications Medication Sig Dispense Refill diclofenac, EC, (VOLTAREN) 75 mg EC tablet Take 1 tablet by mouth twice daily. (Patient not taking: Reported on 05/11/2023) 60 tablet 0 cyclobenzaprine (FLEXERIL) 10 mg tablet TAKE 1 TABLET BY MOUTH TWICE A DAY NEEDED *DO NOT OPERATE A VEHICLE WHILE TAKING THIS [id number]* (Patient not taking: Reported on 11/17/2020) 30 tablet 0 Amoxicillin 500 mg tablet Take four capsules 1 hour prior to dental procedure and two capsule 6 hours later (Patient not taking: Reported on 01/08/2023) 12 tablet 0 diclofenac, EC, (VOLTAREN) 75 mg EC tablet Take 1 tablet by mouth twice daily. (Patient not taking: Reported on 11/17/2020) 60 tablet 0 aspirin, enteric coated (ECOTRIN LOW STRENGTH) 81 mg EC tablet Take 1 tablet by mouth twice daily for 28 days. (Patient not taking: Reported on 05/11/2023) [address] (PROTONIX) 20 mg tablet Take 1 tablet by mouth once daily for 14 days. (Patient not taking: Reported on 05/11/2023) 14 tablet 0 No current facility-administered medications for this visit. No pets. No mold or water damage in the home ALLERGIES No Known Allergies REVIEW OF SYSTEMS GENERAL: No weight loss, fatigue or fevers. HEENT: No nasal bleeding, congestion or rhinorrhea NECK: Negative for pain or significant neck swelling RESPIRATORY: See HPI CARDIOVASCULAR: See HPI GI: No nausea, vomiting, or diarrhea MUSCULOSKELETAL: Negative for joint pain or swelling, back pain or muscle pain SKIN: See HPI HEMATOLOGY/LYMPHOLOGY: no LAD NEURO: lightheaded with coughing episodes The remainder of the review of systems is negative. PHYSICAL EXAMINATION: BP 122/75 Pulse 94 Temp (Src) 97 (Temporal) Resp 16 Wt 190 lb (86.2kg) SpO2 95% Patient was sitting in chair, well groomed, NAD, speaking in full sentences Head is normocephalic and atraumatic. Anicteric sclerae, PERRL Mucous membranes are moist, mallampati score of 3, nasal turbinated with no erythema/polyp, teeth in good health, no gingivitis Neck showed JVP to not be grossly elevated No anterior cervical and no supraclavicular lymphadenopathy. No thyroid enlargement. Normal heart rate and regular rhythm, normal S1 and S2; no murmur, no rub or gallop, no pitting edema LE, Respiratory effort is normal with sym chest wall rise, normal airflow b/l in comparison to normal patient his age. NO expiratory wheezing on normal respiratory and no expiratory wheeze on forced expiratory maneuvers. NO rhonchi or mobile secretions. No crackles. Abdomen is soft, non-distended, +BS, Extremities are warm and well perfused without clubbing, 2+radial pulses, sym calf size b/l, muscle bulk is normal, normal muscle tone Skin is warm and dry without rash A/Ox4, with normal gait. Mood is normal, normal affect. DATA: I have reviewed the report and images of a CT scan of the chest dated 11/14/2004. . The radiologist reports IMPRESSION: 1. LINGULAR INFILTRATE OF INDETERMINATE NATURE; DIFFERENTIAL DIAGNOSIS DESCRIBED ABOVE. 2. CHANGES OF PRIOR GRANULOMATOUS DISEASE. CT SCAN OF THE CHEST WITHOUT INTRAVENOUS CONTRAST: The patient has history of cough; the study was performed to evaluate the chest for airway or parenchymal disease. Axial scans were obtained at 5-mm intervals throughout the chest from the level of the apices through the level of the abdomen without the administration of intravenous contrast. There is no comparison study available. There is a focal infiltrate in the lingula which is suggestive of an area of inflammatory or possibly infectious disease representing either early or resolving pneumonia. Granulomatous disease cannot be totally excluded. There is a small calcified granuloma in the right apex. There is no other significant parenchymal abnormality. There are small calcified lymph nodes in the mediastinum in the precarinal region on the right side with no evidence of mediastinal or hilar adenopathy. There is minimal thickening of the wall of the distal esophagus. Examination of the uppermost portion of the abdomen demonstrates a tiny calcification in the left kidey and very small cyst in the right kidney. Pleural margins appear unremarkable. . Pulmonary Function Test Results Date FVC FVC % FEV1 FEV1% FEV1/FVC FEF 25-75 TLC TLC% DLCO DLCO% Comments/Interpretation Six-Minute Walk Test Results Date 6MWD Walt O2 %Sat Last insp O2 l/min Airway Culture Results Date Source Bacteria NTM NTM Rx Sensitivities Laboratory results reviewed: 11/24/04 10:15 Pneumocystis Exam [id number] DORINA: 11/24/04 10:15 REC: 11/24/04 15:56 PHYS: JANUARY DEL TORO Specimen Desc: Bronchalveolar Lavage (BAL) LINGULA Smear Result No Pneumocystis carinii seen. Report Status FINAL [id number] Latest Reference Range & Units 11/24/04 10:15 Lymph%, SF 6 - 8 % 12 ! Mcintosh%, SF % 7 Macro%, SF % 76 Neut%, BF 0 - 1 % 1 Color, BA Lavage Colorless Supernatant Color, BA Lavage Colorless Supernatant Clarity, BA Lavage Clear Clarity, BA Lavage Clear RBC, BA Lavage /uL 59 Total Nucleated Cells, BAL /uL 130 Resp EPI Cls% % 4 Slide Number BA Lavage [id number] BAL Comment Test Not Indicated BAL Pathologist Interpretation Test Not Indicated Latest Reference Range & Units 08/31/17 09:50 02/27/19 13:26 03/11/19 04:05 WBC 3.70 - 11.00 k/uL 5.19 5.44 11.78 (H) RBC 4.20 - 6.00 m/uL 5.35 4.76 4.15 (L) Hemoglobin 13.0 - 17.0 g/dL 17.1 (H) 15.4 13.4 Hematocrit 39.0 - 51.0 % 51.8 (H) 45.7 40.3 Platelet Count 150 - 400 k/uL 194 182 173 MCV 80.0 - 100.0 fL 96.8 96.0 97.1 MCH 26.0 - 34.0 pG 32.0 32.4 32.3 MCHC 30.5 - 36.0 g/dL 33.0 33.7 33.3 MPV 9.0 - 12.7 fL 11.4 10.8 11.9 RDW-CV 11.5 - 15.0 % 11.7 12.3 12.1 Neut% % 50.2 57.5 Abs Neut (ANC) 1.45 - 7.50 k/uL 2.60 3.13 Lymph% % 37.2 26.1 Abs Lymph 1.00 - 4.00 k/uL 1.93 1.42 Mcintosh% % 8.7 13.4 Abs Mcintosh <0.87 k/uL 0.45 0.73 Eosin% % 3.3 2.8 Abs Eosin <0.46 k/uL 0.17 0.15 Baso% % 0.6 0.2 Abs Baso <0.11 k/uL 0.03 <0.03 NRBCs 0 /100 WBC 0.0 Nucleated Reds 0 /100 WBC 0.0 Absolute nRBC <0.01 k/uL <0.01 Diff Type Auto Diff Latest Reference Range & Units 03/11/19 04:05 Sodium 136 - 144 mmol/L 140 Potassium 3.7 - 5.1 mmol/L 4.4 Chloride 97 - 105 mmol/L 106 (H) CO2 22 - 30 mmol/L 26 BUN 9 - 24 mg/dL 18 Creatinine 0.73 - 1.22 mg/dL 0.80 Glucose 74 - 99 mg/dL 121 (H) Calcium 8.5 - 10.2 mg/dL 8.7 Anion Gap 9 - 18 mmol/L 8 (L) eGFR- >60 >60 eGFR-All Other Races >60 . >60 Discussed with the patient who agrees to the plan Andre Kramer MD Staff, Pulmonary & Critical Care Medicine Staff, [facility] ([facility]) [facility] [place] [facility] documented in this encounter [facility] 01-08-2023 History of Presen t illness Narrative PATIENT: Noemi Garcia [id number] REFERRING MD: Self 01/08/2023 Chief Complaint Elevated PSA History of Present Illness Noemi Garcia is a very pleasant 57 year old male who presents with a history of OA, knee replacement, diverticulosis, GERD, elevated PSA . Follow up today with PSA free and total Occasional hesitancy Occasional nocturia AUA score: 6 (mild), Qol 1 JOSEFINA score: 22, no ED No family hx of prostate cancer., No hematuria, No dysuria, No kidney stones. Past Histories PAST MEDICAL HISTORY Diagnosis Date NONE PAST SURGICAL HISTORY Procedure Laterality Date COLONOSCOPY HERNIA REPAIR HX Bilateral PAST SURGICAL HISTORY OF lumbar disc surgery Medications Current Outpatient Medications Medication Instructions Amoxicillin 500 mg tablet Take four capsules 1 hour prior to dental procedure and two capsule 6 hours later aspirin, enteric coated (ECOTRIN LOW STRENGTH) 81 mg, ORAL, 2 TIMES DAILY cyclobenzaprine (FLEXERIL) 10 mg tablet TAKE 1 TABLET BY MOUTH TWICE A DAY NEEDED *DO NOT OPERATE A VEHICLE WHILE TAKING THIS [id number]* diclofenac (EC) (VOLTAREN) 75 mg, ORAL, 2 TIMES DAILY diclofenac (EC) (VOLTAREN) 75 mg, ORAL, [address] (PROTONIX) 20 mg, ORAL, DAILY Family History FAMILY HISTORY Problem Relation Age of Onset Coronary Artery Disease Paternal Grandfather Social History Social History Tobacco Use Smoking status: Never Smokeless tobacco: Never Substance Use Topics Alcohol use: Yes Comment: Social Drug use: No Allergies Allergies: No Known Allergies Review of Systems REVIEW OF SYSTEMS 1.GENERAL: No weight loss, malaise or fevers. 2.GI: No nausea, vomiting, or diarrhea 3.: See HPI Physical Exam There were no vitals taken for this visit. General: Alert, no acute distress, oriented Lungs: No respiratory distress or pursed lip breathing Psych: Affect and mood normal Abdomen: Estimated body mass index is 26.08 kg/m as calculated from the following: Height as of 07/11/22: 180.3 cm (5' 11 ). Weight as of 07/11/22: 84.8 kg (187 lb). Labs and Pathology PSA 06/06/22 3.8 Imaging: N/a Diagnosis (R97.20) Elevated PSA (primary encounter diagnosis) Assessment: 57 year old male who presents with a history of OA, knee replacement, diverticulosis, GERD, elevated PSA . Follow up today with PSA free and total Occasional hesitancy Occasional nocturia AUA score: 6 (mild), Qol 1 JOSEFINA score: 22, no ED No family hx of prostate cancer., No hematuria, No dysuria, No kidney stones. Plan: I recommend a new total and free PSA. Will call with the results Pedro Yañez MD Urologic Staff Formerly [facility] [place] [facility] [place] Medical Decision Making: Problems: Low: Stable chronic illness Data: Unique test result(s) reviewed: 1 Unique test(s) ordered: 1 Risk: Low: Low risk from testing/treatment Medical Decision Making Level: 3 - Low documented in this encounter [facility] [place] 12-12-2022 Hospital Discharg e instructions FERNY Burgos CNP - 12/12/2022 8:12 AM EDT Go to ER for worsening symptoms, inability to keep liquids down, inability to urinate for greater than 8 hours or difficulty breathing. Follow-up with your primary care provider. Continue clear liquids for today and then may try bland diet. The following attachments cannot be sent through Care Everywhere.Oral Rehydration (Australian)Gastroenteritis (Australian)documented in this encounter [facility] [employer] Phone: 07-11-2022 History of Presen t illness Narrative PATIENT: Noemi Garcia [id number] REFERRING: self 07/11/2022 Chief Complaint Prostate check, elevated PSA History of Present Illness Noemi Garcia is a very pleasant 57 year old male who presents with a history of Prostate check, elevated PSA . No family hx of prostate cancer. No hematuria No dysuria No kiney stones No UTI. Last PSA within normal range: 3.8, 06/06/22 PVR today 26 AUA score: 6 (mild), Qol 1 JOSEFINA score: 22, no ED Past Histories PAST MEDICAL HISTORY Diagnosis Date NONE PAST SURGICAL HISTORY Procedure Laterality Date COLONOSCOPY HERNIA REPAIR HX Bilateral PAST SURGICAL HISTORY OF lumbar disc surgery Medications Current Outpatient Medications Medication Instructions Amoxicillin 500 mg tablet Take four capsules 1 hour prior to dental procedure and two capsule 6 hours later aspirin, enteric coated (ECOTRIN LOW STRENGTH) 81 mg, ORAL, 2 TIMES DAILY cyclobenzaprine (FLEXERIL) 10 mg tablet TAKE 1 TABLET BY MOUTH TWICE A DAY NEEDED *DO NOT OPERATE A VEHICLE WHILE TAKING THIS [id number]* diclofenac (EC) (VOLTAREN) 75 mg, ORAL, 2 TIMES DAILY diclofenac (EC) (VOLTAREN) 75 mg, ORAL, [address] (PROTONIX) 20 mg, ORAL, DAILY Family History FAMILY HISTORY Problem Relation Age of Onset Coronary Artery Disease Paternal Grandfather Social History Social History Tobacco Use Smoking status: Never Smokeless tobacco: Never Substance Use Topics Alcohol use: Yes Comment: Social Drug use: No Allergies Allergies: No Known Allergies Review of Systems Review of system GENERAL: No weight loss, fevers, chills, or sweats HEENT: Negative for frequent or significant headaches, No changes in hearing or vision, NECK: Negative for lumps, pain and significant neck swelling RESPIRATORY: Negative for cough, wheezing or shortness of breath CARDIOVASCULAR: Negative for chest pain, leg swelling or palpitations GI: No nausea, vomiting, diarrhea, constipation, melena, hematochezia, abdominal pain : No burning with urination, urgency/frequency, hematuria MUSCULOSKELETAL: Negative for joint pain or swelling, back pain or muscle pain PSYCH: Negative for sleep disturbance, mood disorder SKIN: Negative for rash or ulcers GENITOURINARY: RECTAL EXAM: Normal exam PROSTATE: 1+ Consistency: smooth, non-tender, benign Nodule: None Physical Exam BP 137/90 (BP Site: Left Arm, BP Position: Sitting, BP Cuff Size: Regular Adult) Pulse 65 Ht 180.3 cm (5' 11 ) Wt 84.8 kg (187 lb) BMI 26.08 kg/m General: Alert, no acute distress, oriented Lungs: No respiratory distress or pursed lip breathing Psych: Affect and mood normal Abdomen: Estimated body mass index is 26.08 kg/m as calculated from the following: Height as of this encounter: 180.3 cm (5' 11 ). Weight as of this encounter: 84.8 kg (187 lb). PSA, FREE AND TOTAL RATIO Collected: 06/06/2022 8:49 AM Status: F Source: [facility] REPOSITORY TYPE CODE TESTS RESULT OUT OF RANGE REFERENCE UNITS LAB 249674(INC) Prostate Specific Ag, Serum 3.8 0.0-4.0 Diagnosis (Z13.89) Screening for genitourinary condition (primary encounter diagnosis) Assessment: 57 year old male who presents with a history of Prostate check, elevated PSA . No family hx of prostate cancer., No hematuria, No dysuria, No kiney stones, No UTI. Last PSA within normal range: 3.8, 06/06/22, PVR today 26, AUA score: 6 (mild), Qol 1, JOSEFINA score: 22, no ED. We discussed the role of PSA as screening of prostate cancer . No further work up needed at this time Total PSA and free PSA in 6 months Pedro Yañez MD Urologic Staff [facility] [place] [facility] [place] Medical Decision Making: Problems: Low: Stable chronic illness Data: Unique source(s) for external note(s) reviewed: 1 Unique test result(s) reviewed: 1 Unique test(s) ordered: 2 Assessment requiring an independent historian(s) Independent interpretation of test from other physician/QHCP Risk: Low: Low risk from testing/treatment Medical Decision Making Level: 3 - Low documented in this encounter [facility] [place] Evaluation + Plan note No data available for this section [facility] [place] Evaluation note Diagnosis Screening for genitourinary condition- Primary Screening for other and unspecified genitourinary condition documented [facility] [place]* Diagnosis Gastroenteritis- Primary Other and unspecified noninfectious gastroenteritis and colitis documented [facility] this encounter [facility] Phone: evaluation note* Diagnosis Elevated PSA- Primary Elevated prostate specific antigen (PSA) documented in this encounter [facility] note* Diagnosis Screening for genitourinary condition Screening for other and unspecified genitourinary condition documented in this encounter [facility] note* Diagnosis Elevated PSA- Primary Elevated prostate specific antigen (PSA) documented in this encounter [facility] note* Diagnosis Chronic cough- Primary Cough Wheezing documented in this encounter [facility] note* Diagnosis Chronic cough- Primary Cough Wheezing documented in this encounter [facility] note* Diagnosis Chronic cough- Primary Cough Wheezing documented in this encounter [facility] note* Diagnosis Chronic cough Cough Wheezing documented in this encounter [facility] note* Diagnosis Elevated PSA- Primary Elevated prostate specific antigen (PSA) documented in this encounter [facility] note* Diagnosis Screening for genitourinary condition- Primary Screening for other and unspecified genitourinary condition Erectile dysfunction due to arterial insufficiency Impotence of organic origin documented in this encounter [facility] note* Diagnosis Elevated PSA- Primary Elevated prostate specific antigen (PSA) Encounter for observation for other suspected diseases and conditions ruled out documented in this encounter [facility] Discharge instructions No data available for this section [facility] [facility] note No data available for this section [facility] Purpose Family History No Family History Records FoundNo Family History Records FoundNo Family History Records FoundNo Family History Records FoundNo Family History Records FoundNo Family History Records Found No data available for this section No Family History Records Found Advance Directives No Advanced Directives Records FoundDocuments on File Type Date Recorded 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 Advance Directive(s) 08/31/2017 4:12 PM Documents on File Type Date Recorded 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 Advance Directive(s) 08/31/2017 4:12 PM Reason for Referral Specialty Diagnoses / Procedures Referred By Carmine jones Referred To Contact Ent - Otolaryngology Diagnoses Chronic cough Wheezing Procedures CONSULT TO ENT OFFICE/OUTPATIENT NEW HIGH MDM 60-74 MINUTES Andre Kramer MD [address] [place] [address] Referral ID Status Reason Start Date Expiration Date Visits Requested Visits Authorized [id number] Pending Review PCP Requested Referral 05/11/2023 05/10/2024 1 1 Specialty Diagnoses / Procedures Referred By Contac t Referred To Contact [facility] Diagnoses Chronic cough Wheezing Procedures SPIROMETRY - BASELINE AND POST DILATOR BRNCDILAT RSPSE SPMTRY PRE&POST-BRNCDILAT ADMN Andre Kramer MD [address] [place] [address] [facility] [place] [address] [place] [address] Referral ID Status Reason Start Date Expiration Date V isits Requested Visits Authorized [id number] Closed Auto-Generate d Referral 05/11/2023 06/09/2024 1 1 Specialty Diagnoses / Procedures Referred By Contac t Referred To Contact [facility] Diagnoses Chronic cough Wheezing Procedures NITRIC OXIDE, EXHALED NITRIC OXIDE GAS DETERMINATION Andre Kramer MD [address] [place] [address] Respiratory [place] [address] [place] [address] Referral ID Status Reason Start Date Expiration Date V isits Requested Visits Authorized [id number] Closed Auto-Generate d Referral 05/11/2023 06/09/2024 1 1 Specialty Diagnoses / Procedures Referred By Sueac t Referred To Contact [facility] IM[facility] Diagnoses Elevated PSA Encounter for observation for other suspected diseases and conditions ruled out Procedures MRI 3D POST PROCESSING 3D RENDERING W/INTERP&POSTPROC DIFF WORK STATION Pedro Yañez MD [address] [place] [address] Mr [facility] [place] [address] Referral ID Status Reason Start Date Expiration Date Visits Requested Visits Authorized [id number] Pending Review Auto-Generat ed Referral 03/17/2024 04/16/2025 1 1 Specialty Diagnoses / Procedures Referred By Sueac t Referred To Contact [facility] Diagnoses Elevated PSA Encounter for observation for other suspected diseases and conditions ruled out Procedures MRI PROSTATE WO/W IVCON MRI PELVIS W/O & W/CONTRAST MATERIAL Pedro Yañez MD [address] [place] [address] [place] [address] Referral ID Status Reason Start Date Expiration Date Visits Requested Visits Authorized [id number] Pending Review Auto-Generat ed Referral 03/17/2024 04/16/2025 1 1 Additional Source Comments (unrecognized sect ion and content) No Status Records FoundNo Status Records FoundNo Status Records FoundNo Status Records FoundNo Status Records FoundNo Status Records FoundNo Status Records Found INFORMATION SOURCE (unrecogn ized section and content) DATE CREATED AUTHOR [facility]18/2020 [facility] DATE CREATED AUTHOR AUTHOR'S ORGANIZ ATION 06/27/2021 [facility] DATE CREATED AUTHOR AUTHOR'S ORGANIZ ATION 10/31/2021 [facility] DATE CREATED AUTHOR AUTHOR'S ORGANIZ ATION [facility]/2022 [facility] DATE CREATED AUTHOR AUTHOR'S ORGANIZ ATION 12/14/2022 [facility] DATE CREATED AUTHOR AUTHOR'S ORGANIZ ATION 03/19/2024 [facility] DATE CREATED AUTHOR AUTHOR'S ORGANIZ ATION 05/09/2024 Jose Donis[facility] Source Comments (unrecognize d section and content) In the event this informatio n is protected by the Federal Confidentiality of Alcohol and Drug Abuse Patient Records regulations: The Federal rules restrict any use of the information to criminally investigate or prosecute any alcohol or drug abuse patient.[facility] [place] the event this information is protected by the Federal Confidentiality of Alcohol and Drug Abuse Patient Records regulations: The Federal rules restrict any use of the information to criminally investigate or prosecute any alcohol or drug abuse patient.[facility] [place] the event this information is protected by the Federal Confidentiality of Alcohol and Drug Abuse Patient Records regulations: The Federal rules restrict any use of the information to criminally investigate or prosecute any alcohol or drug abuse patient.[facility] [place] the event this information is protected by the Federal Confidentiality of Alcohol and Drug Abuse Patient Records regulations: The Federal rules restrict any use of the information to criminally investigate or prosecute any alcohol or drug abuse patient.[facility] [place] the event this information is protected by the Federal Confidentiality of Alcohol and Drug Abuse Patient Records regulations: The Federal rules restrict any use of the information to criminally investigate or prosecute any alcohol or drug abuse patient.[facility] [place] the event this information is protected by the Federal Confidentiality of Alcohol and Drug Abuse Patient Records regulations: The Federal rules restrict any use of the information to criminally investigate or prosecute any alcohol or drug abuse patient.[facility] [place] the event this information is protected by the Federal Confidentiality of Alcohol and Drug Abuse Patient Records regulations: The Federal rules restrict any use of the information to criminally investigate or prosecute any alcohol or drug abuse patient.[facility] [place] the event this information is protected by the Federal Confidentiality of Alcohol and Drug Abuse Patient Records regulations: The Federal rules restrict any use of the information to criminally investigate or prosecute any alcohol or drug abuse patient.[facility] [place] the event this information is protected by the Federal Confidentiality of Alcohol and Drug Abuse Patient Records regulations: The Federal rules restrict any use of the information to criminally investigate or prosecute any alcohol or drug abuse patient.[facility] [place] the event this information is protected by the Federal Confidentiality of Alcohol and Drug Abuse Patient Records regulations: The Federal rules restrict any use of the information to criminally investigate or prosecute any alcohol or drug abuse patient.[facility] [place] the event this information is protected by the Federal Confidentiality of Alcohol and Drug Abuse Patient Records regulations: The Federal rules restrict any use of the information to criminally investigate or prosecute any alcohol or drug abuse patient.[facility] [place] the event this information is protected by the Federal Confidentiality of Alcohol and Drug Abuse Patient Records regulations: The Federal rules restrict any use of the information to criminally investigate or prosecute any alcohol or drug abuse patient.[facility] [place] the event this information is protected by the Federal Confidentiality of Alcohol and Drug Abuse Patient Records regulations: The Federal rules restrict any use of the information to criminally investigate or prosecute any alcohol or drug abuse patient.[facility] Reason for Visit (unrecogniz ed section and content) Reason Comments Elevated PSA Consult Reason Comments Emesis Diarrhea Reason Comments Follow Up Elevated PSA Reason Comments New Cough Wheezing Reason Comments Spirometry Specialty Diagnoses / Procedures Referred By Contac t Referred To Contact [facility] Diagnoses Chronic cough Wheezing Procedures NITRIC OXIDE, EXHALED NITRIC OXIDE GAS DETERMINATION Andre Kramer MD [address] [place] [address] [address] Referral ID Status Reason Start Date Expiration Date V isits Requested Visits Authorized [id number] Closed Auto-Generate d Referral 05/11/2023 06/09/2024 1 1 Specialty Diagnoses / Procedures Referred By Contac t Referred To Contact [facility] Diagnoses Chronic cough Wheezing Procedures SPIROMETRY - BASELINE AND POST DILATOR BRNCDILAT RSPSE SPMTRY PRE&POST-BRNCDILAT ADMN Andre Kramer MD [id number] [place] [address] Referral ID Status Reason Start Date Expiration Date V isits Requested Visits Authorized [id number] Closed Auto-Generate d Referral 05/11/2023 06/09/2024 1 1 Reason Comments Radio Gen A21 Reason Comments Elevated PSA Specialty Diagnoses / Procedures [facility] Diagnoses Elevated PSA Procedures OFFICE CONSULTATION NEW/ESTAB PATIENT 15 MIN Pedro Yañez MD [address] [place] [address] [place] [address] Referral ID Status Reason Start Date Expiration Date Visits Requested Visits Authorized [id number] New Request Patient Cleared - INN Insurance Found 03/13/2024 06/11/2024 1 1 Care Teams (unrecognized sec tion and content) 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 Relationship Specialty Start Date End Date Mary Maki MD PCP - General Family Medicine 07/08/12 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 Relationship Specialty Start Date End Date Mary Maki MD PCP - General Family Medicine 07/08/12 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 Relationship Specialty Start Date End Date Mary Maki MD PCP - General Family Medicine 07/08/12 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 Relationship Specialty Start Date End Date Mary Maki MD PCP - General Family Medicine 07/08/12 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 Relationship Specialty Start Date End Date Mary Maki MD PCP - General Family Medicine 07/08/12 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 Relationship Specialty Start Date End Date Mary Maki MD PCP - General Family Medicine 07/08/12 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 Relationship Specialty Start Date End Date Mary Maki MD PCP - General Family Medicine 07/08/12 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 Relationship Specialty Start Date End Date Mary Maki MD PCP - General Family Medicine 07/08/12 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 Relationship Specialty Start Date End Date Mary Maki MD PCP - General Family Medicine 07/08/12 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 Relationship Specialty Start Date End Date Mary Maki MD PCP - General Family Medicine 07/08/12 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 Relationship Specialty Start Date End Date Mary Maki MD PCP - General Family Medicine 07/08/12 Ordered Prescriptions (unrec ognized section and content) Prescription Sig Dispensed Refills Start Date End Da te ondansetron (ZOFRAN-ODT) 4 MG disintegrating tablet Take 1 tablet by mouth 3 times daily as needed for Nausea or Vomiting 20 tablet 0 12/12/2022 Scheduled Active and Recently Administ ered Medications (unrecognized section and content) Medication Order 12/10/2022 12/11/2022 12/12/2022 ondansetron (ZOFRAN-ODT) disintegrating tablet 4 mg (COMPLETED) 4 mg, Oral, ONCE, 1 dose, On Sun12/12/22 at 0845 0825 (Given - Provid er: Rigo Hammer LPN) FOR RECORDS PERTAINING TO PATIENTS WHO ARE OR HAVE BEEN ENROLLED IN A CHEMICAL DEPENDENCY/SUBSTANCEABUSE PROGRAM, SOME INFORMATION MAY BE OMITTED. This clinical summary was aggregated from multiple sources. Caution should be exercised in using it in the provision of clinical care. This summary normalizes information from multiple sources, and as a consequence, information in this document may materially change the coding, format and clinical context of patient data. In addition, data may be omitted in some cases. CLINICAL DECISIONS SHOULD BE BASED ON THE PRIMARY CLINICAL RECORDS. [employer] [facility]. provides no warranty or guarantee of the accuracy or completeness of information in this document.
[2024-05-21] MEDS: LACTATED RINGER'S SOLUTION 1,000 ML 50 ML IV (08:50)
[2024-05-21 09:35] VITALS: BP 93/52; PULSE 70; TEMP 36.5; O2SAT 95
[2024-05-21 09:50] VITALS: BP 93/53; PULSE 64; O2SAT 97
[2024-05-21 10:05] VITALS: BP 138/86; PULSE 69; O2SAT 97
[2024-05-21 10:20] VITALS: BP 133/88; PULSE 66; O2SAT 98
[2024-05-21 10:50] VITALS: BP 129/82; PULSE 69; O2SAT 98
== END 2024-05-21 11:05 | disposition home or self-care (01) ==
PROVIDERS: PCP Family Medicine; Visit Provider Surgery
PROC: (CPT 811; principal; 2024-05-21 08:55)
DX: R19.5 Other fecal abnormalities (principal); K57.30 Diverticulosis of large intestine without perforation or abscess without bleeding; K21.9 Gastro-esophageal reflux disease without esophagitis
CPT/HCPCS: 45378; J2371; J2704

== ENCOUNTER 2025-01-08 11:29 | Outpatient (OUT) | payer BC, SELFPAY ==
[2025-01-08 11:50] LABS: Basophils Percent Auto 0.2 % (0.2-2.0); Eosinophils Absolute Auto 0.1 10^3/uL (0.0-0.7); Eosinophils Percent Auto 1.9 % (0.9-7.0); Hematocrit 47.7 % (42.0-54.0); Hemoglobin 16.1 g/dL (14.0-18.0); Immature Granulocytes Abs Auto 0.01 10^3/uL (0.00-0.03); Immature Granulocytes Pct Auto 0.2 % (0.0-0.5); Lymphocytes Absolute Auto 2.3 10^3/uL (1.2-3.8); Lymphocytes Percent Auto 40.6 % (20.5-60.0); Mean Corpuscular HGB Conc 33.8 g/dL (29.9-35.2); Mean Corpuscular Hemoglobin 32.5 pg (25.9-34.0); Mean Corpuscular Volume 96.2 fL (80.0-94.0); Mean Platelet Volume 10.3 fL (9.5-13.5); Monocytes Absolute Auto 0.5 10^3/uL (0.3-0.8); Monocytes Percent Auto 9.3 % (1.7-12.0); Neutrophils Absolute Auto 2.7 10^3/uL (1.4-6.5); Neutrophils Percent Auto 47.8 % (43.0-75.0); Platelet Count 194 10^3/uL (150-450); Red Blood Count 4.96 10^6/uL (4.70-6.10); White Blood Count 5.7 10^3/uL (4.0-11.0)
[2025-01-08 12:00] LABS: Estimated Average Glucose 111 mg/dL; Glycohemoglobin A1C 5.5 % (4.5-6.2)
[2025-01-08 13:04] LABS: Alanine Aminotransferase 30 U/L (16-63); Albumin Globulin Ratio 1.3; Albumin Level 3.9 g/dL (3.4-5.0); Alkaline Phosphatase 100 U/L (46-116); Anion Gap 10.8; Aspartate Amino Transferase 34 U/L (15-37); BUN Creatinine Ratio 20.7; Bilirubin Total 0.5 mg/dL (0.2-1.0); Calcium 8.9 mg/dL (8.5-10.1); Carbon Dioxide 29.4 mmol/L (21.0-32.0); Chloride 106 mmol/L (98-107); Chol HDL Ratio 3.4; Cholesterol 171 mg/dL (<=200); Estimated GFR (African America >60 (>=60 mL/min/1.73m^2); Estimated GFR (Non-African Ame >60 (>=60 mL/min/1.73m^2); Free T3 2.73 pg/mL (2.18-3.98); Globulin 2.9 g/dL; Glucose 99 mg/dL (74-106); HDL Cholesterol 50 mg/dL (40-60); LDL Cholesterol Calculated 96.4 mg/dL; Potassium 4.2 mmol/L (3.5-5.1); Sodium 142 mmol/L (136-145); Thyroid Stimulating Hormone 1.316 uIU/mL (0.358-3.740); Total Protein 6.8 g/dL (6.4-8.2); Triglycerides 123 mg/dL (<=150); VLDL CHOLESTEROL 24.6 mg/dL
[2025-01-09 02:07] LABS: Insulin 10.4 uIU/mL (2.6-24.9)
== END 2025-01-08 11:30 | disposition home or self-care (01) ==
LOC: LAB 11:31
PROVIDERS: PCP Family Medicine; Visit Provider Family Medicine
DX: Z00.00 Encounter for general adult medical examination without abnormal findings (principal); R73.09 Other abnormal glucose; E03.9 Hypothyroidism, unspecified
CPT/HCPCS: 36415; 80053; 80061; 83036; 83525; 84436; 84443; 84481; 85025